=== PATIENT | female | born 1960 | race Caucasian/White ===

== ENCOUNTER 2023-08-01 13:59 | Outpatient (CLI) | payer MEDICARE, SELFPAY ==
[2023-08-01 14:58] LABS: Basophils Percent Auto 0.4 % (0.2-1.2); Eosinophils Absolute Auto 0.1 K/mm3 (0-0.3); Eosinophils Percent Auto 1.8 % (0-4.4); Hematocrit 43.5 % (37.0-47.0); Hemoglobin 13.5 g/dL (12.0-15.0); Immature Granulocyte Absolute 0.01 K/mm3 (0.00-0.031); Immature Granulocyte Percent A 0.2 % (0-0.5); Lymphocytes Absolute Auto 0.91 K/mm3 (0.9-3.2); Lymphocytes Percent Auto 19.9 % (18.3-44.2); Mean Corpuscular Hemoglobin 29.6 pg (26-34); Mean Corpuscular Volume 95.4 fl (80-100); Mean Platelet Volume 10.5 fl (7.4-10.4); Monocytes Absolute Auto 0.3 K/mm3 (0.1-0.6); Monocytes Percent Auto 6.1 % (2.6-8.5); Neutrophils Absolute Auto 3.3 K/mm3 (1.3-6.7); Neutrophils Percent Auto 71.6 % (45.5-73.1); Platelet Count Result 220 k/mm3 (150-375); Red Blood Count 4.56 M/mm3 (4.2-5.4); White Blood Count 4.6 K/mm3 (4.5-10.0)
[2023-08-01 15:08] LABS: Appearance Urine Clear (Clear); Bacteria Urine None Seen /hpf; Bilirubin Urine Negative (Negative); Blood Urine Negative (Negative); Color Urine Yellow (Yellow); Glucose Urine UA Negative (Negative); Ketones Urine Negative (Negative); Leukocyte Esterase Ur Negative LEU/UL (Negative); Need Manual Microscopic Reviewed; Nitrate Urine Negative (Negative); Protein Urine Trace mg/dL (Negative); Squamous Epithelial Cell Urine None Seen /hpf (Few); WBC Urine 0-5 /hpf (0-3)
[2023-08-01 15:14] LABS: Specific Grav Ur 1.041 (1.001-1.035)
[2023-08-01 15:16] LABS: Add Urine Microscopic? YES
[2023-08-01 15:56] LABS: Vitamin D 25 Hydroxy 54.9 ng/mL
[2023-08-01 19:16] LABS: Alanine Aminotransferase 22 U/L (6-35); Albumin Level 4.6 g/dL (3.5-5.1); Alkaline Phosphatase 136 U/L (38-126); Anion Gap 7 mmol/L (4-12); Aspartate Amino Transferase 27 U/L (14-36); Bilirubin,Total 1.1 mg/dL (0.2-1.3); Blood Urea Nitrogen 24 mg/dL (7-17); Calcium 9.1 mg/dL (8.4-10.2); Carbon Dioxide 27 mmol/L (22-30); Chloride 103 mmol/L (98-107); Cholesterol 261 mg/dL (0-200); Estimated Glomerular Filt Rate > 60; Glucose 94 mg/dL (65-110); HDL Direct 92 mg/dL; Potassium 4.1 mmol/L (3.4-5.0); Sodium 137 mmol/L (137-145); Triglycerides 52 mg/dL (<150)
[2023-08-01 19:29] LABS: LDL Cholesterol Direct 141 mg/dL
[2023-08-01 20:35] LABS: Folic Acid 11.6 ng/mL (2.76->20)
[2023-08-01 21:10] LABS: Hemoglobin A1C 5.4 % (<5.7)
== END 2023-08-01 14:00 | disposition home or self-care (01) ==
PROVIDERS: PCP Internal Medicine; Visit Provider Nurse Practitioner
DX: R73.9 Hyperglycemia, unspecified (principal); K92.1 Melena; L30.9 Dermatitis, unspecified; M81.0 Age-related osteoporosis without current pathological fracture; E55.9 Vitamin D deficiency, unspecified; R53.81 Other malaise; Z79.899 Other long term (current) drug therapy; Z85.3 Personal history of malignant neoplasm of breast; Z85.41 Personal history of malignant neoplasm of cervix uteri; Z83.3 Family history of diabetes mellitus; Z13.21 Encounter for screening for nutritional disorder
CPT/HCPCS: 36415; 80053; 80061; 81001; 82306; 82607; 82746; 83036; 84443; 85025

== ENCOUNTER 2023-09-03 07:00 | Outpatient (NON) | payer MEDICARE, SELFPAY | END 2023-09-03 07:01 | disposition home or self-care (01) | LOC: ANHLAB 09-04 07:45 | PROVIDERS: PCP Nurse Practitioner; Visit Provider Internal Medicine Gastroenterology | DX: K21.9 Gastro-esophageal reflux disease without esophagitis (principal); Z12.11 Encounter for screening for malignant neoplasm of colon | CPT/HCPCS: 88305 ==

== ENCOUNTER 2023-09-03 09:02 | Day surgery (SDC) | payer MEDICARE, SELFPAY ==
[2023-08-15 09:39] VITALS: BMI 25.9
--- NOTE | 2023-09-02 22:02 | PM.HPGS ---
History of Present Illness History of Present Illness Consent: Risks, benefits, and alternatives have been discussed and questions answered. Patient agrees to proceed with procedure. Chief complaint: Personal History of Colon Polyps, GERD Narrative: Tatyana Beltran is a 63 year old female who is referred for colon cancer screening. She is also being investigated for chronic GERD Sx. she had been found to have an esophageal ring a few years ago and is now having difficulty with swallowing again. Review of Systems Review of Systems: All systems reviewed & are unremarkable except as noted in HPI and below PMFSH Social History Social History Smoking status: Former smoker Substance use type: does not use Meds Home Medications and Allergies Home Medications Medication Instructions Recorded Confirmed Type dextroamphetamine-amphetamine 30 1 tablet PO DIRECTED 08/27/23 09/03/23 History mg tablet lamotrigine 200 mg tablet 200 mg PO DIRECTED 08/27/23 09/03/23 History trazodone 150 mg tablet 150 mg PO DIRECTED 08/27/23 09/03/23 History Allergies Allergy/AdvReac Type Severity Reaction Status Date / Time morphine Allergy Mild NAUSEA/VOMI Verified 09/03/23 10:25 TING povidone Allergy Mild Rash Verified 09/03/23 10:25 SURGICAL TAPE Allergy Mild RASH Uncoded 09/03/23 10:25 Exam Const: General: alert Orientation/consciousness: patient oriented x3 Resp: Auscultation: clear to auscultation bilaterally Cardio: Rhythm: regular rhythm GI: GI Palp: Yes Soft to palpation and No Tenderness to palpation present (GI) Neuro: General: patient oriented x3 Assessment and Plan Assessment and plan (1) GERD (gastroesophageal reflux disease): Code(s): K21.9 - Gastro-esophageal reflux disease without esophagitis Status: Acute Assessment and Plan: EGD with possible biopsy or dilatation or cautery. (2) Colon cancer screening: Code(s): Z12.11 - Encounter for screening for malignant neoplasm of colon Status: Acute Assessment and Plan: Colonoscopy with possible biopsy or polypectomy or cautery or injection of substances.
[2023-09-03 10:38] VITALS: BP 148/73; PULSE 75; RESP 20; TEMP 36.9; O2SAT 99; BMI 25.0
[2023-09-03] MEDS: LACTATED RINGERS 1,000 ML 150 ML IV CONT (10:52)
--- NOTE | 2023-09-03 11:10 | P.PNAN_ITS ---
Anes - Initial Pre Proc Eval Procedure: Operation Date: 09/03/23 11:30 Proposed Procedures p Esophagogastroduodenoscopy - Sung Bejarano MD s Diagnostic Colonoscopy - Sung Bejarano MD Date/Time: 09/03/23 11:10 Surgeon: Sung Bejarano MD Pre Op Diagnosis: Personal History of Colon Polyps, GERD Patient Data Age: 63 Gender: F Height: 1.52 m Weight: 58 kg Last Vital Signs Temp 36.9 C 09/03/23 10:38 Pulse 75 09/03/23 10:38 Resp 20 09/03/23 10:38 BP 148/73 H 09/03/23 10:38 Pulse Ox 99 09/03/23 10:38 O2 Del Method Room Air 09/03/23 10:38 Allergies Allergy/AdvReac Type Severity Reaction Status Date / Time morphine Allergy Mild NAUSEA/VOMI Verified 09/03/23 10:25 TING povidone Allergy Mild Rash Verified 09/03/23 10:25 SURGICAL TAPE Allergy Mild RASH Uncoded 09/03/23 10:25 Home Medications Medication Instructions Recorded Confirmed Type dextroamphetamine-amphetamine 30 1 tablet PO DIRECTED 08/27/23 09/03/23 History mg tablet lamotrigine 200 mg tablet 200 mg PO DIRECTED 08/27/23 09/03/23 History trazodone 150 mg tablet 150 mg PO DIRECTED 08/27/23 09/03/23 History Patient hx anesthesia problems: none and other (BP drops) Family hx anesthesia problems: none Results Review: All pre-operative results and documents have been reviewed as part of the pre- operative evaluation. [facility] Social History Social History Smoking status: Former smoker Substance use type: does not use Anes - Eval Final PreProcedure Day of Procedure 09/03/23 11:10 Patient weight: normal Heart: regular rate and rhythm Lungs: decreased breath sounds Airway: Mallampati scale class II Neurological: alert and oriented Last oral intake: >/= 8 hours ASA classification: III Emergent: no Anesthetic plan: proceed Anesthesia type and monitoring: general GIVS and standard monitoring Results Review: All pre-operative results and documents have been reviewed as part of the pre- operative evaluation. Informed Consent: The patient's anesthetic plan and its attendant risks and benefits were discussed with the patient/family/POA. Questions were solicited and answers pro vided to the satisfaction of the patient/family/POA.
[2023-09-03 12:24] VITALS: BP 102/59; PULSE 70; RESP 20; O2SAT 100
[2023-09-03 12:34] VITALS: BP 139/80; PULSE 65; RESP 18; O2SAT 98
[2023-09-03 12:44] VITALS: BP 129/85; PULSE 73; RESP 20; O2SAT 100
--- NOTE | 2023-09-03 13:04 | WPDANESPN ---
Anes - Prog Note Post-Op Date/Time: 09/03/23 13:04 Cardiovascular status: normal Respiratory status: normal Airway patency: baseline Mental status: baseline Post-Op hydration status: normal Vital Signs: Last Vital Signs Temp 36.9 C 09/03/23 10:38 Pulse 73 09/03/23 12:44 Resp 20 09/03/23 12:44 BP 129/85 09/03/23 12:44 Pulse Ox 100 09/03/23 12:44 O2 Del Method Room Air 09/03/23 12:44 Pain Score (VAS): 0 I/O: Intake & Output 09/02/23 09/03/23 09/03/23 23:59 07:59 15:59 Intake Total 1000 Balance 1000 Patient Feedback: Patient satisfied with anesthetic care.
== END 2023-09-03 13:09 | disposition home or self-care (01) ==
PROVIDERS: PCP Nurse Practitioner; Visit Provider Internal Medicine Gastroenterology
PROC: 0DJ08ZZ Inspection of Upper Intestinal Tract, Via Natural or Artificial Opening Endoscopic (ICD-10-PCS; CPT 43235; principal; 2023-09-03 11:30)
PROC: 0DJD8ZZ Inspection of Lower Intestinal Tract, Via Natural or Artificial Opening Endoscopic (ICD-10-PCS; CPT 45378; 2023-09-03 11:30)
DX: Z12.11 Encounter for screening for malignant neoplasm of colon (principal); D12.5 Benign neoplasm of sigmoid colon; K57.30 Diverticulosis of large intestine without perforation or abscess without bleeding; K21.00 Gastro-esophageal reflux disease with esophagitis, without bleeding; K22.2 Esophageal obstruction; K29.70 Gastritis, unspecified, without bleeding
CPT/HCPCS: 45380; 45381; 43239

== ENCOUNTER 2023-09-21 15:08 | Outpatient (CLI) | payer MEDICARE, SELFPAY ==
--- NOTE | ~2023-09-21 | CT_ITS ---
CT abdomen pelvis wo con Ordering provider: Crow Byrd MD History: 63 years Female with . evaluate for hernia . Comparison: None. Technique: CT abdomen and pelvis without IV and without oral contrast. Automated exposure control and iterative reconstruction technique were employed. The dose-length product was 418.63 mGy-cm. Left breast implant. Findings: VISUALIZED LOWER CHEST: Dependent atelectatic changes. UPPER ABDOMINAL ORGANS: Liver: Normal. Gallbladder: Normal. Spleen: Normal. Stomach/duodenum: Normal. Pancreas: Normal. Adrenals: Normal. Kidneys: Tiny calcification the left kidney which may be a stone or vascular. Tiny calcification also seen in the right kidney midpole in the right kidney in the area is present, with an opacity in PELVIC ORGANS: The bladder is underfilled. BOWEL AND MESENTERY: Colon: no evidence of diverticulitis. . Fecal material is seen in the colon which may indicate consti pation. The appendix is not demonstrated Small Bowel: Normal. No obstruction. Peritoneum/mesentery: No free air or free fluid. No mesenteric lymphadenopathy. RETROPERITONEUM: Mild atheromatous disease of the abdominal aorta. No retroperitoneal lymphadenopat hy. MUSCULOSKELETAL: Superficial soft tissues: Postoperative changes seen in the anterior abdominal wall. No definite aries iation seen. Possibility of a defect of about 9 mm to the right of the anterior abdominal mesh is not excluded image #[id number] although sutures anterior to this area seen. Otherwise, The superficial soft tiss ues are normal. Bones: Multilevel loss of volume which is most likely chronic. Osteopenia of the bones. Age appropria te degenerative changes of the spine. Bilateral sacroiliitis. IMPRESSION: 1. Multilevel compression fractures most likely chronic. Osteopenia of the bones. 2. Postoperative changes in the anterior abdominal wall with no definite herniation. Possible defect on the right side as described above near to the mesh is not excluded. Clinical correlation and foll ow-up advised. 3. Tiny calcifications in both kidneys most likely vascular. Follow-up advised. Reviewed, dictated and finalized at location A. IMPRESSION: 1. Multilevel compression fractures most likely chronic. Osteopenia of the bon es. 2. Postoperative changes in the anterior abdominal wall with no definite herni ation. Possible defect on the right side as described above near to the mesh is not excluded. Clinical correlation and follow-up advised. 3. Tiny calcifications in both kidneys most likely vascular. Follow-up advised .
== END 2023-09-21 15:09 ==
LOC: MICIMG 15:09
PROVIDERS: PCP Surgery; Visit Provider Surgery
DX: D12.5 Benign neoplasm of sigmoid colon (principal); K43.9 Ventral hernia without obstruction or gangrene
CPT/HCPCS: 74176

== ENCOUNTER 2023-11-06 06:15 | Day surgery (SDC) | payer MEDICARE, SELFPAY ==
[2023-09-04 15:12] VITALS: BMI 25.0
[2023-10-23 11:47] VITALS: BMI 25.4
--- NOTE | 2023-10-30 10:27 | PM.HPGS ---
History of Present Illness History of Present Illness Consent: Risks, benefits, and alternatives have been discussed and questions answered. Patient agrees to proceed with procedure. Chief complaint: Gastritis, Benign Neoplasm Sigmoid Colon Narrative: Tatyana Beltran is a 63 year old female Who returns for follow-up of severe ulceration of the esophagus that was noted 2 months ago. Along with that she had erosive gastritis. She has been treated and returns for she also had had a suspicious appearing polypoid mass in the sigmoid colon. Biopsies proved benign. She has been seen by surgery for an opinion regarding resection. Due to the fact that she has had extensive prior abdominal wall surgery, surgery would be difficult with higher risk of complications. She therefore returns for attempted ectomy /EMResection. [facility] Past Medical History Medical History (Updated 10/25/23 @ 09:39 by Rowena Christianson) Allergies Arthritis Cancer COPD (chronic obstructive pulmonary disease) GERD (gastroesophageal reflux disease) Hepatitis History of bilateral breast cancer TRAM flap IBS (irritable bowel syndrome) Osteoporosis Surgical History Surgical History (Updated 10/25/23 @ 09:42 by Rowena Christianson) History of appendectomy History of reconstruction of both breasts History of tubal ligation Hx of breast surgery reconstruction Hx of hernia repair Hx of hysterectomy Hx of mastectomy TRAM flap Family History Family History Mother Depression Diabetes mellitus Heart disease Hypertension Cerebrovascular accident Father Diabetes mellitus Heart disease Hypertension Cerebrovascular accident Social History Social History Smoking status: Former smoker Tobacco type: cigarettes Substance use type: does not use Do You Feel Safe in your Home?: Yes Lack of Transportation: No Lack of Food: Never True Current Housing: I Do Not Have Housing Concerned About Future Housing: No Difficulty Paying Gas/Electric Bills: No Difficulty Paying for Meds: YES Currently Unemployed: No Education: High School Diploma/GED Difficulty w/ Childcare or Family Care: No Living arrangements: alone Spiritual care concerns: No Meds Home Medications and Allergies Home Medications Medication Instructions Recorded Confirmed Type dextroamphetamine-amphetamine 30 1 tablet PO DIRECTED 08/27/23 10/26/23 History mg tablet lamotrigine 200 mg tablet 200 mg PO DIRECTED 08/27/23 10/26/23 History trazodone 150 mg tablet 150 mg PO DIRECTED 08/27/23 10/26/23 History pantoprazole 40 mg tablet,delayed 40 mg PO QAM #30 tabs 09/03/23 10/26/23 Rx release ascorbic acid (vitamin C) 500 mg 500 mg PO DAILY 10/23/23 10/26/23 History capsule cholecalciferol (vitamin D3) 50 50 mcg PO DAILY 10/23/23 10/26/23 History mcg (2,000 unit) tablet (Vitamin D3) magnesium 500 mg tablet 500 mg PO BID 10/23/23 10/26/23 History omega-3 fatty acids-vitamin E 1 cap PO DAILY 10/23/23 10/26/23 History 1,000 mg capsule vitamin E 100 unit capsule 100 unit PO DAILY 10/23/23 10/26/23 History Allergies Allergy/AdvReac Type Severity Reaction Status Date / Time morphine Allergy Mild NAUSEA/VOMI Verified 10/25/23 08:57 TING povidone Allergy Mild Rash Verified 10/25/23 08:57 SURGICAL TAPE Allergy Mild RASH Uncoded 10/25/23 08:57 Assessment and Plan Assessment and plan (1) GERD with esophagitis: Qualifiers: Esophagitis bleeding: unspecified whether hemorrhage Qualified Code(s): K21.00 - Gastro-esophageal reflux disease with esophagitis, without bleeding Code(s): K21.00 - Gastro-esophageal reflux disease with esophagitis, without bleeding Status: Acute Assessment and Plan: EGD with possible biopsy or dilatation or cautery. (2) Adenomatous polyp of sigmoid
[2023-11-06 06:46] VITALS: BP 138/84; PULSE 79; RESP 15; TEMP 37.1; O2SAT 100
[2023-11-06] MEDS: LACTATED RINGERS 1,000 ML 150 ML IV CONT (07:00)
--- NOTE | 2023-11-06 07:01 | PM.HPGS ---
History of Present Illness History of Present Illness Consent: Risks, benefits, and alternatives have been discussed and questions answered. Patient agrees to proceed with procedure. Chief complaint: Gastritis, Benign Neoplasm Sigmoid Colon Narrative: Tatyana Beltran is a 63 year old female presents for both colonoscopy and EGD. Patient seen today in the absence of Dr. Bejarano. Patient found to have severe ulcerative esophagitis 2 months ago. At that time placed on pantoprazole 40 mg daily. She reports that she continues to have heartburn despite this medication. Patient denies any dysphagia nor bleeding. She also has a history of colon polyps in the past. At the time of colonoscopy 2 months ago found to have a rather large sessile carpet like polyp. This was unable to be removed endoscopically. Patient seen by surgery but is deemed a very high surgical risk given multiple ventral site hernias. Patient now presents today for endoscopic attempt at EMR resection. Review of Systems Review of Systems: All systems reviewed & are unremarkable except as noted in HPI and below PMFSH Past Medical History Medical History (Updated 10/25/23 @ 09:39 by Rowena Christianson) Allergies Arthritis Cancer COPD (chronic obstructive pulmonary disease) GERD (gastroesophageal reflux disease) Hepatitis History of bilateral breast cancer TRAM flap IBS (irritable bowel syndrome) Osteoporosis Surgical History Surgical History (Updated 10/25/23 @ 09:42 by Rowena Christianson) History of appendectomy History of reconstruction of both breasts History of tubal ligation Hx of breast surgery reconstruction Hx of hernia repair Hx of hysterectomy Hx of mastectomy TRAM flap Family History Family History Mother Depression Diabetes mellitus Heart disease Hypertension Cerebrovascular accident Father Diabetes mellitus Heart disease Hypertension Cerebrovascular accident Social History Social History Smoking status: Former smoker Tobacco type: cigarettes Substance use type: does not use Do You Feel Safe in your Home?: Yes Lack of Transportation: No Lack of Food: Never True Current Housing: I Do Not Have Housing Concerned About Future Housing: No Difficulty Paying Gas/Electric Bills: No Difficulty Paying for Meds: YES Currently Unemployed: No Education: High School Diploma/GED Difficulty w/ Childcare or Family Care: No Living arrangements: alone Spiritual care concerns: No Meds Home Medications and Allergies Home Medications Medication Instructions Recorded Confirmed Type dextroamphetamine-amphetamine 30 1 tablet PO DIRECTED 08/27/23 11/06/23 History mg tablet lamotrigine 200 mg tablet 200 mg PO DIRECTED 08/27/23 11/06/23 History trazodone 150 mg tablet 150 mg PO DIRECTED 08/27/23 11/06/23 History pantoprazole 40 mg tablet,delayed 40 mg PO QAM #30 tabs 09/03/23 11/06/23 Rx release ascorbic acid (vitamin C) 500 mg 500 mg PO DAILY 10/23/23 11/06/23 History capsule cholecalciferol (vitamin D3) 50 50 mcg PO DAILY 10/23/23 11/06/23 History mcg (2,000 unit) tablet (Vitamin D3) magnesium 500 mg tablet 500 mg PO BID 10/23/23 11/06/23 History omega-3 fatty acids-vitamin E 1 cap PO DAILY 10/23/23 11/06/23 History 1,000 mg capsule vitamin E 100 unit capsule 100 unit PO DAILY 10/23/23 11/06/23 History Allergies Allergy/AdvReac Type Severity Reaction Status Date / Time morphine Allergy Mild NAUSEA/VOMI Verified 11/06/23 06:45 TING povidone Allergy Mild Rash Verified 11/06/23 06:45 SURGICAL TAPE Allergy Mild RASH Uncoded 11/06/23 06:45 Vital Signs Vital Signs - 24 hr 11/06/23 06:46 Temperature 98.8 F Pulse Rate 79 Respiratory Rate 15 Blood Pressure 138/84 Pulse Oximetry 100 Oxygen Delivery Room Air Exam Narrative: [place]
--- NOTE | 2023-11-06 07:03 | WPDANESEPPF ---
Anes - Initial Pre Proc Eval Procedure: Operation Date: 11/06/23 08:00 Proposed Procedures p Esophagogastroduodenoscopy - Nguyễn Marcus MD s Flexible Sigmoidoscopy - Nguyễn Marcus MD Date/Time: 11/06/23 07:03 Surgeon: Nguyễn Marcus MD Pre Op Diagnosis: Gastritis, Benign Neoplasm Sigmoid Colon Patient Data Age: 63 Gender: F Height: 1.52 m Weight: 58.6 kg Last Vital Signs Temp 37.1 C 11/06/23 06:46 Pulse 79 11/06/23 06:46 Resp 15 11/06/23 06:46 BP 138/84 11/06/23 06:46 Pulse Ox 100 11/06/23 06:46 O2 Del Method Room Air 11/06/23 06:46 Allergies Allergy/AdvReac Type Severity Reaction Status Date / Time morphine Allergy Mild NAUSEA/VOMI Verified 11/06/23 06:45 TING povidone Allergy Mild Rash Verified 11/06/23 06:45 SURGICAL TAPE Allergy Mild RASH Uncoded 11/06/23 06:45 Home Medications Medication Instructions Recorded Confirmed Type dextroamphetamine-amphetamine 30 1 tablet PO DIRECTED 08/27/23 11/06/23 History mg tablet lamotrigine 200 mg tablet 200 mg PO DIRECTED 08/27/23 11/06/23 History trazodone 150 mg tablet 150 mg PO DIRECTED 08/27/23 11/06/23 History pantoprazole 40 mg tablet,delayed 40 mg PO QAM #30 tabs 09/03/23 11/06/23 Rx release ascorbic acid (vitamin C) 500 mg 500 mg PO DAILY 10/23/23 11/06/23 History capsule cholecalciferol (vitamin D3) 50 50 mcg PO DAILY 10/23/23 11/06/23 History mcg (2,000 unit) tablet (Vitamin D3) magnesium 500 mg tablet 500 mg PO BID 10/23/23 11/06/23 History omega-3 fatty acids-vitamin E 1 cap PO DAILY 10/23/23 11/06/23 History 1,000 mg capsule vitamin E 100 unit capsule 100 unit PO DAILY 10/23/23 11/06/23 History Patient hx anesthesia problems: none Family hx anesthesia problems: none Results Review: All pre-operative results and documents have been reviewed as part of the pre-operative evaluation. [facility] Past Medical History Medical History (Updated 10/25/23 @ 09:39 by Rowena Christianson) Allergies Arthritis Cancer COPD (chronic obstructive pulmonary disease) GERD (gastroesophageal reflux disease) Hepatitis History of bilateral breast cancer TRAM flap IBS (irritable bowel syndrome) Osteoporosis Surgical History Surgical History (Updated 10/25/23 @ 09:42 by Rowena Christianson) History of appendectomy History of reconstruction of both breasts History of tubal ligation Hx of breast surgery reconstruction Hx of hernia repair Hx of hysterectomy Hx of mastectomy TRAM flap Family History Family History Mother Depression Diabetes mellitus Heart disease Hypertension Cerebrovascular accident Father Diabetes mellitus Heart disease Hypertension Cerebrovascular accident Social History Social History Smoking status: Former smoker Tobacco type: cigarettes Substance use type: does not use Do You Feel Safe in your Home?: Yes Lack of Transportation: No Lack of Food: Never True Current Housing: I Do Not Have Housing Concerned About Future Housing: No Difficulty Paying Gas/Electric Bills: No Difficulty Paying for Meds: YES Currently Unemployed: No Education: High School Diploma/GED Difficulty w/ Childcare or Family Care: No Living arrangements: alone Spiritual care concerns: No Anes - Eval Final PreProcedure Day of Procedure 11/06/23 07:03 Patient weight: overweight Heart: regular rate and rhythm Lungs: clear to auscultation Airway: Mallampati scale class II Neurological: alert and oriented Last oral intake: >/= 8 hours ASA classification: III Emergent: no Anesthetic plan: proceed Anesthesia type and monitoring: general GIVS and standard monitoring Results Review: All pre-operative results and documents have been reviewed as part of the pre-operative evaluation. Informed Consent: The patient's anesthetic
[2023-11-06 08:39] VITALS: BP 98/67; PULSE 70; RESP 18; O2SAT 100
[2023-11-06 08:49] VITALS: BP 115/77; PULSE 72; RESP 18; O2SAT 100
[2023-11-06 08:59] VITALS: BP 129/73; PULSE 68; RESP 18; O2SAT 100
--- NOTE | 2023-11-06 11:21 | WPDANESPN ---
Anes - Prog Note Post-Op Date/Time: 11/06/23 11:21 Cardiovascular status: normal Respiratory status: normal Airway patency: baseline Mental status: baseline Post-Op hydration status: normal Vital Signs: Last Vital Signs Temp 37.1 C 11/06/23 06:46 Pulse 68 11/06/23 08:59 Resp 18 11/06/23 08:59 BP 129/73 11/06/23 08:59 Pulse Ox 100 11/06/23 08:59 O2 Del Method Room Air 11/06/23 08:59 Pain Score (VAS): 0 I/O: Intake & Output 11/05/23 11/06/23 11/06/23 23:59 07:59 15:59 Intake Total 450 Balance 450 Post-procedural complaints: none Patient Feedback: Patient satisfied with anesthetic care. Other Findings: Patient vital signs back to baseline. Patient denies nausea and vomiting. Patient's pain under control. Patient OK for discharge.
== END 2023-11-06 09:15 | disposition home or self-care (01) ==
PROVIDERS: PCP Nurse Practitioner; Visit Provider Internal Medicine Gastroenterology
PROC: 0DJ08ZZ Inspection of Upper Intestinal Tract, Via Natural or Artificial Opening Endoscopic (ICD-10-PCS; CPT 43235; principal; 2023-11-06 08:00)
PROC: 0DJD8ZZ Inspection of Lower Intestinal Tract, Via Natural or Artificial Opening Endoscopic (ICD-10-PCS; CPT 45330; 2023-11-06 08:00)
DX: D12.5 Benign neoplasm of sigmoid colon (principal); Z86.010 Personal history of colon polyps; K22.10 Ulcer of esophagus without bleeding; K21.9 Gastro-esophageal reflux disease without esophagitis; R12 Heartburn
CPT/HCPCS: 45338; 43239

== ENCOUNTER 2023-11-06 07:00 | Outpatient (NON) | payer MEDICARE, SELFPAY | END 2023-11-06 07:01 | disposition home or self-care (01) | PROVIDERS: PCP Nurse Practitioner; Visit Provider Internal Medicine Gastroenterology | DX: D12.5 Benign neoplasm of sigmoid colon (principal) | CPT/HCPCS: 88305 ==

== ENCOUNTER 2023-11-23 12:04 | Outpatient (CLI) | payer MEDICARE, SELFPAY ==
[2023-11-20 11:20] LABS: Glucose Point of Care 92 mg/dl (65-105)
--- NOTE | ~2023-11-23 | PE_ITS ---
EXAMINATION: PET skull to mid thigh DATE: 11/23/2023 13:48 INDICATION: Breast and cervical cancer TECHNIQUE: Blood glucose level was 104 mg/dL. 11.161 mCi of 18-fluorodeoxyglucose (18-FDG) was admini stered i.v. Low dose computed tomography (CT) images were acquired from the base of the brain to the proximal thighs for attenuation correction and anatomic localization. Positron emission tomography (P ET) images were acquired in the same distribution beginning 55 minutes after injection. Images includ ing fused PET/CT images were reconstructed in axial, coronal, and sagittal planes. Automated exposure control technique was employed. The dose-length product was 753.07mGy-cm. COMPARISON: CT dated 09/21/2023 FINDINGS: Head/neck: There is symmetric increased activity in the oral cavity, palatine tonsils, parotid glands, submandi bular glands, laryngeal muscles and ocular muscles without CT correlate, likely physiologic. No patho logically enlarged cervical lymphadenopathy or suspicious foci of increased FDG uptake in the visuali zed head or neck. Chest: Mild dependent atelectasis in both lungs. No suspicious pulmonary nodules, pneumonia, pulmonary edema or pleural effusion. Heart size is normal. Atherosclerotic coronary artery calcification. No pericar dial effusion. Thoracic aorta is normal in caliber. No pathologically enlarged or FDG avid thoracic l ymphadenopathy. There are bilateral breast implants with rupture and collapse on the right. There ar e few surgical clips at and inferior to the the left axilla consistent with prior axillary lymph node dissection. Abdomen/pelvis/proximal thighs: Physiologic renal accumulation and excretion of FDG activity in the kidneys, bladder and along portio ns of ureters. Normal degree and heterogenous pattern of increased uptake throughout the liver withou t radiologic correlate or dominant FDG avid lesion. The gallbladder, pancreas, spleen and bilateral a drenal glands are normal. Mild moderate uptake scattered throughout the bowels without radiologic cor relate, also likely physiologic. The uterus is not identified and has likely been surgically resected . There are postoperative change of prior abdominal ventral hernia mesh repairs. No other abnormal foci of increased FDG uptake or pathologically enlarged lymphadenopathy in the abdomen, pelvis or pro ximal thighs. Musculoskeletal: Again seen are multiple chronic compression fractures in the lumbar and lower thoracic spine. There i s mild uptake associated with a minimally displaced fracture of the anterior left 11th rib. No other suspicious lytic, blastic or FDG avid bone lesions. IMPRESSION: 1. No suspicious FDG avid lesions to suggest metastatic disease. 2. Small focus of increased FDG uptake associated with anterior left 11th rib fracture. Reviewed, dictated and finalized at location B. IMPRESSION: 1. No suspicious FDG avid lesions to suggest metastatic disease. 2. Small focus of increased FDG uptake associated with anterior left 11th rib f racture.
[2023-11-23 12:23] LABS: Glucose Point of Care 104 mg/dl (65-105)
== END 2023-11-23 12:05 | disposition home or self-care (01) ==
PROVIDERS: PCP Nurse Practitioner; Visit Provider Nurse Practitioner
DX: C50.111 Malignant neoplasm of central portion of right female breast (principal); C50.112 Malignant neoplasm of central portion of left female breast; Z85.41 Personal history of malignant neoplasm of cervix uteri; Z85.3 Personal history of malignant neoplasm of breast
CPT/HCPCS: 78815; A9552

== ENCOUNTER 2024-05-12 14:43 | Outpatient (CLI) | payer MEDICARE, SELFPAY ==
--- NOTE | ~2024-05-12 | DEXA_ITS ---
Bone Density Report Name: KAMRAN POTTS Age: 63 Sex: Female Ethnicity: White Date of : 1960 Indication: postmenopausal; screening for osteoporosis; height loss; inflammatory bowel disease; prior fracture; cancer; hysterectomy; Referring Provider: LAWSON, EMILIA Rogers Study: Bone densitometry was performed. Exam Date: May 12, 2024 Accession number: [id number] Bone Density: Region BMD T-score Z-score Classification AP Spine(L1-L4) 0.705 -3.1 -1.3 Osteoporosis Femoral Neck (Left) 0.567 -2.5 -1.0 Osteoporosis Total Hip (Left) 0.607 -2.7 -1.5 Osteoporosis Femoral Neck (Right) 0.598 -2.3 -0.7 Osteopenia Total Hip (Right) 0.642 -2.5 -1.2 Osteoporosis Total Hip Mean 0.625 -2.6 -1.4 Osteoporosis World Health Organization criteria for BMD impression classify patients as: Normal (T-score at or above -1.0), Osteopenia (T-score between -1.0 and -2.5), or Osteoporosis (T-score at or below -2.5). 10-year Fracture Risk: FRAX not reported because: Some T-score for Spine Total or Hip Total or Femoral Neck at or below -2.5 Clinical Information Provided by Patient: Has had a low trauma fracture Has used the following medications: Fosamax (i.e. alendronate), Vitamin D, Calcium Has the following medical conditions: Cancer, Inflammatory bowel diseases, Hysterectomy Patient maximum height was 61 Menopause Age: 34 No regular weight bearing exercise Drinks caffeinated beverages Onset of menses at age 10 Number of children 3 Impression: The patient has established osteoporosis, based on the Total Spine T-score and the existence of a prior fracture. The patient has risk factors, including: previous fracture. Discussion: HIGH RISK OF FRACTURE. BONE DENSITY IS UNDESIRABLY LOW AT ONE OR MORE SKELETAL SITES, CONSISTENT WITH POSTMENOPAUSAL OSTEOPOROSIS. This patient's lowest T-score, in a patient who has previously fractured, meets the World Health Organization's (WHO) criteria for severe osteoporosis. In untreated patients, the risk of osteoporotic fracture increases approximately two-fold for each 1.0 SD decrease in T-score. Low bone density is not the only risk factor for fracture; also consider factors such as patient's age, frailty or poor health, risk of falling, risk of injury, previous osteoporotic fracture, family history of osteoporosis, cigarette smoking, low body weight, etc. Not everyone with low bone mineral density has osteoporosis; osteomalacia and other metabolic bone disorders should also be considered. Patients who have osteoporosis should be evaluated for specific diseases and conditions (secondary causes) that may cause or contribute to bone loss. The [place] Association of Clinical Endocrinologists (AACE) and National Osteoporosis Foundation (NOF) recommend pharmacologic intervention for all postmenopausal women whose T-score is in this range. The patient should follow a healthful lifestyle (good nutrition with adequate calcium and vitamin D, and appropriate weight-bearing exercise). Follow-Up: Consider a repeat BMD and Vertebral Fracture Assessment (VFA) exam in 2 years or sooner if medically necessary, to reassess this patient's status. Reported by: ALYX on 05/12/2024 3:45:00 PM. Reviewed, dictated and finalized at location ANora FERNANDEZ
--- OUTSIDE RECORDS SUMMARY | 2024-05-12 17:17 | XMS_ITS | Clinical Summary ---
Author Organization [facility] Address [address] [place] [id number] Care Team Providers Care Hospitality Manager Name Role Phone Luara Webb MD Primary Care Provider Social History Tobacco Use Types Packs/Day Years Used Date Smoking Tobacco: Never Assessed Comments Unknown Sex and Gender Information Value Date Recorded Sex Assigned at Not on file Legal Sex Female 8:03 PM CDT Gender Identity Not on file Sexual Orientation Not on file Last Filed Vital Signs Vital Sign Reading Time Taken Comments Blood Pressure 122/82 07/08/2014 9:24 AM CDT Pulse - - Temperature - - Respiratory Rate - - Oxygen Saturation - - Inhaled Oxygen Concentration - - Weight 63.5 kg (140 lb) 07/08/2014 9:24 AM CDT Height 162.6 cm (5' 4 ) 07/08/2014 9:24 AM CDT Body Mass Index 24.03 07/08/2014 9:24 AM CDT Plan of Treatment Health Maintenance Due Date Last Done Comments Colorectal Cancer Screening Colonoscopy (10 Years) 1958 Hepatitis C 1976 DTaP, Tdap and Td Vaccines ( 1 - Tdap) 1977 Mammogram Screening 1998 Zoster Vaccines (1 of 2) 2008 Dexa Scan (General) 06/27/2023 Pneumococcal Vaccine: 65+ Ye ars (1 of 1 - PCV) 06/27/2023 COVID-19 Vaccine ( - 2023-2 5 season) 2023 Influenza Adult (#1) 2023 RSV Immunization or 60+ Years (1 - 1-dose 75+ series) 2033 Meningococcal B Vaccine Aged Out No l onger eligible based on patient's age to complete this topic Meningococcal Vaccine Aged Out No reuben juan eligible based on patient's age to complete this topic Pneumococcal Vaccine: Pediat rics (0 to 5 Years) and At-Risk Patients (6 to 64 Years) Aged Out No longer eligible b ased on patient's age to complete this topic RSV Immunizations Under 20 Months Aged Out No longer eligible based on patient's age to complete this topic Care Teams Hospitality Manager Relationship Specialty Start Date End Date Laura Webb MD [address] [place] [address] PCP - General 09/19/16
--- OUTSIDE RECORDS SUMMARY | 2024-05-12 17:17 | XMS_ITS | Clinical Summary ---
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 Active TraZODone HCl 300 MG Tablet Take 150 mg by mouth nightly. Active amphetamine-dex troamphetamine (ADDERALL) 30 MG Tablet Take by mouth. Activ e Meloxicam 15 MG Tablet meloxicam 15 mg tablet daily Active traMADol (ULTRAM) 50 MG Tablet tramadol 150 mg HS Active gabapentin (NEURONTIN) 300 MG Capsule gabapentin 300 mg capsule TAKE 1 CAPSULE BY MOUTH THREE TIMES DAILY Active omeprazole (PRILOSEC) 40 MG CAPSULE DELAYED RELEASE Take 1 Cap by mouth daily. 90 Cap 3 8 Active lactulose (CHRONULAC) 10 GM/15ML Solution Take 30 mL by mouth 2 times daily. 946 mL 3 8 Active Family History Medical History Relation Name Comments Diabetes Father Heart Disease Father Colon Cancer Maternal Aunt Colon Cancer Maternal Grandfather colon Diabetes Mother Heart Disease Mother Relation Name Status Comments Father Maternal Aunt Maternal Grandfather Mother Social History Tobacco Use Types Packs/Day Years Used Date Smoking Tobacco: Former Cigarettes 2 40 1 - 12/26/2012 Smokeless Tobacco: Never Comments:quit 6 Alcohol Use Standard Drinks/Week Comments Yes 0 (1 standard drink = 0.6 oz pur e alcohol) Socially Comments No Sex and Gender Information Value Date Recorded Sex Assigned at Not on file Legal Sex Female 11:47 PM CDT Gender Identity Not on file Sexual Orientation Not on file Last Filed Vital Signs Vital Sign Reading Time Taken Comments Blood Pressure 114/80 03/22/2018 11:36 AM 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 Pulse 72 03/22/2018 11:36 AM 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 Temperature 36 C (96.8 F) 01/16/2018 11:21 AM 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 Respiratory Rate 18 01/16/2018 11:2 1 AM 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 Oxygen Saturation 98% 03/22/2018 11: 36 AM 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 Inhaled Oxygen Concentration - - Weight 54.8 kg (120 lb 12.8 oz) 019 11:36 AM 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 Height 154.9 cm (5' 1 ) 03/22/2018 11:3 6 AM 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 Body Mass Index 22.82 03/22/2018 11:36 AM 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 Plan of Treatment Health Maintenance Due Date Last Done Comments DEXA Bone Density 1960 Hepatitis C Virus (HCV) Screening 1960 TdaP Immunization 1960 Cologuard 2008 Immunochemical Fecal Occult Blood 2008 Zoster Immunization (1 of 2) 2008 Pneumococcal Immunization (5 0+ years) (2 of 2 - PCV) 12/15/2016 12/16/2015 Colonoscopy 01/16/2021 01/16/2018 Colorectal Cancer Screening 01/16/2021 Influenza Immunization (#1) 11/04/202312/04, 12/15/2015 SARS-COV-2 Immunization ( season) 2023 08/13/2020, 07/16/2020 Respiratory Syncytial Virus (RSV) Immunization (Adult) (1 - 1-dose 75+ series) 2033 01/16/2018 Pneumococcal Immunization Combined Discontinued 12/16/2015 Hepatitis B Immunization Aged Out No longer eligible based on patient's age to complete this topic Meningococcal Immunization (ACWY) Aged Out No longer eligible based on patient's age to complete this topic Rotavirus Immunization Aged Out No lo nger eligible based on patient's age to complete this topic Insurance MEDICAID [employer] Care Teams Welder Railcar Mechanic Relationship Specialty Start Date End Date Laura Webb MD [address] [place] [address] PCP - General Internal Medicine 08/23/17
--- OUTSIDE RECORDS SUMMARY | 2024-05-12 17:18 | XMS_ITS | Clinical Summary ---
Author Organization [facility] Address [address] [place] [address] Phone Care Team Providers Care Clerk Of Superior Court Name Role Phone Unavailable Primary Care Provider Unavailabl e Allergies No known active allergies Medications traZODone (DESYREL) 300 mg tablet Take 300 mg by mouth daily at bedtime. Active lamoTRIgine (LAMICTAL) 200 mg tablet Take 200 mg by mouth daily. Active dextroamphetamin e-amphetamine (ADDERALL) 30 mg tablet Take 30 mg by mouth daily. Active naproxen (NAPROSYN) 500 mg tablet Take 500 mg by mouth 2 times daily with meals. Active Active Problems Problem Noted Date Diagnosed Date S/P breast reconstruction, bilateral 12/17/2014 Social History Tobacco Use Types Packs/Day Years Used Date Smoking Tobacco: Former Smokeless Tobacco: Never Alcohol Use Standard Drinks/Week Comments Yes 0 (1 standard drink = 0.6 oz pur e alcohol) Comments No Sex and Gender Information Value Date Recorded Sex Assigned at Not on file Legal Sex Female 1:12 PM CDT Gender Identity Not on file Sexual Orientation Not on file Last Filed Vital Signs Vital Sign Reading Time Taken Comments Blood Pressure 124/76 12/16/2014 10:09 AM CDT Pulse - - Temperature - - Respiratory Rate - - Oxygen Saturation - - Inhaled Oxygen Concentration - - Weight 57.2 kg (126 lb) 12/16/2014 10:09 AM CDT Height 157.5 cm (5' 2 ) 12/16/2014 10:09 AM CDT Body Mass Index 23.05 12/16/2014 10:09 AM CDT Plan of Treatment Health Maintenance Due Date Last Done Comments DTAP/TDAP/TD VACCINES (1 - Tdap) 1977 BREAST CANCER SCREENING 1998 COLORECTAL SCREENING 06/27/2003 Colorectal Cancer Screening 06/27/2003 FIT-DNA Q 3 years 06/27/2003 FIT/FOBT Q 1 year 06/27/2003 Flex Sig/CT Colonography Q 5 years 06/27/2003 PNEUMOCOCCAL VACCINE 50+ YEARS (1 of 1 - PCV) 06/27/19 09 ZOSTER VACCINE (1 of 2) 2008 OSTEOPOROSIS SCREENING 06/27/2023 INFLUENZA VACCINE (#1) 2023 RSV VACCINE (60+ or ) (1 - 1-dose 75+ series) 2033
--- OUTSIDE RECORDS SUMMARY | 2024-05-12 17:18 | XMS_ITS | Data Portability ---
Author Organization [facility] Address [address] [place] [address] Care Team Providers Care Test Developer Name Role Phone LAURA WEBB Primary Care Provider [phone] Assessment No assessment recorded. Plan of Treatment Reminders Order Date Submit Date Provider Last Modified By Organization Details Last Modified Time Details Appointments None recorded. Lab O&P (ova & parasites) , stool 2019 020 [facility], [address], [address], [place], [address], 0 17:09:09 BMP, serum or plasma 2017 018 [facility], [address], [address], [place], [address], 8 06:18:31 Referral general surgeon referral - Please call patient to schedule appt. Tessa 2018 019 jenna Powers MD, [address] [facility], [address], [place], [address], 9 07:58:29 orthopedic referral - Please call patient to schedule appt. Thank you 2017 018 tashia [facility], [address] [facility], [place], [address], 8 11:28:58 Procedures None recorded. Surgeries None recorded. Imaging LDCT, chest, for lung cancer screening [address] ([facility]), [address] [place], [address], 9 13:20:05 MAMMO, screening, digital, bilateral [address] ([facility]), [address] [place], [address], 9 13:20:05 CT, abdomen + pelvis, w/ contrast 2017 018 [facility] ([facility]), [address] [place], [address], 8 16:46:08 Medication Orders omeprazole 40 mg capsule,de layed release 2018 019 [id number], [address], [id number], 9 13:19:31 gabapentin 300 mg capsule 2018 019 [facility]95939, [address], [id number], 9 13:14:25 tramadol 50 mg tablet 2017 018 [facility] #30815, [address], [place], [place], [id number], 8 18:30:32 ibuprofen 600 mg tablet 2017 018 [facility] #74441, [address], [place], [place], [id number], 8 18:30:16 gabapentin 300 mg capsule 2017 018 [facility] #[id number], [address], [place], [place], [id number], 8 18:30:15 Patient TargetsNo targets recorded. Patient InstructionsNo instructions recorded. Reason for Referral Orthopedic Referral for Mult iple joint pain wants second opinion on right hip Please call patient to schedule appt. Thank you Referring Physician: Laura Webb, Internal Medicine, Encounter Date: 09/19/2017 General Surgeon Referral for Hernia of abdominal wall Please call patient to schedule appt. Feryou Referring Physician: Laura Webb, Internal Medicine, Encounter Date: 03/20/2018 Results Created Date Observation Date Name Description Value Unit Range Abnormal Flag Note LastModifiedBy Organization Detail LastModifiedTime 07/21/19 18 07/21/2017 BMP, serum or plasm a glucose 93 mg/dL 65-99 Not Available [facility] ([facility]) [address] [place], [address], 07/21/2017 06:18:31 07/21/19 18 07/21/2017 BMP, serum or plasm a BUN 19 mg/dL 6-24 Not Available [facility] ([facility]) [address] [place], [address], 07/21/2017 06:18:31 07/21/19 18 07/21/2017 BMP, serum or plasm a creatinine 0.71 mg/dL 0.57-1 .00 Not Available [facility] ([facility]) [address] [place], [address], 07/21/2017 06:18:31 07/21/19 18 07/21/2017 BMP, serum or plasm a eGFR if nonafricn AM 94 mL/mi n/1.7 3 >59 Not Available [facility] ([facility]) [address] [place], [address], 07/21/2017 06:18:31 07/21/19 18 07/21/2017 BMP, serum or plasm a eGFR if africn AM 108 mL/mi n/1.7 3 >59 Not Available [facility] ([facility]) [address] [place], [address], 07/21/2017 06:18:31 07/21/19 18 07/21/2017 BMP, serum or plasm a BUN/creatini ne ratio 27 9-23 above high normal Not Available [facility] ([facility]) [address] [place], [address], 07/21/2017 06:18:31 07/21/19 18 07/21/2017 BMP, serum or plasm a sodium 142 mmol/ L 134-14 4 Not Available [facility] ([facility]) [address] [place], [address], 07/21/2017 06:18:31 07/21/19 18 07/21/2017 BMP, serum or plasm a potassium 3.9 mmol/ L 3.5-5. 2 Not Available [facility] ([facility]) [address] [place], [address], 07/21/2017 06:18:31 07/21/19 18 07/21/2017 BMP, serum or plasm a chloride 102 mmol/ L 96-106 Not Available [facility] ([facility]) [address] [place], [address], 07/21/2017 06:18:31 07/21/19 18 07/21/2017 BMP, serum or plasm a carbon dioxide, total 24 mmol/ L 18-29 Not Available [facility] ([facility]) [address] [place], [address], 07/21/2017 06:18:31 09/23/19 20 09/25/2019 O&P (ova & kristie ites) , stool ova + parasite exam Final report These resul ts were obtai farooq using wet prepa ratio n(s) and trich jayashree stain ed smear . This test does not inclu de testi ng for Crypt ospor idium parvu m, Cyclo spora , or Micro spori mat. Not Available [facility] ([facility]) [address] [place], [address], 09/25/2019 17:09:09 09/23/19 20 09/25/2019 O&P (ova & kristie ites) , stool result 1 Commen t No ova, cysts , or kristie ites seen. One negat hung speci men does not rule out the possi bilit y of a kristie itic infec tion. Not Available [facility] ([facility]) [address] [facility], [place], [address], 09/25/2019 17:09:09 02/02/20 17 01/31/2017 MAMMO , tricia wilson, bilat eral No observ ation record ed. [address] (Imaging) [address] [place], [address], 02/01/2017 15:53:40 02/07/20 17 02/06/2017 XR, shoul tristin No observ ation record ed. [address] (Imaging) [address] [place], [address], 02/08/2017 10:20:20 02/08/20 17 02/07/2017 LDCT, chest , for lung cance r tricia wilson No observ ation record ed. [address] (Imaging) [address] [place], [address], 02/08/2017 10:20:20 03/20/19 18 nerve condu ction study /EMG (PROC ) No observ ation record ed. [address], [place], [address], 03/26/2017 11:57:07 07/09/19 18 07/08/2017 XR, foot No observ ation record ed. [address] (Imaging) [address] [place], [address], 07/12/2017 21:17:30 07/26/19 18 07/25/2017 CT, abdom en + pelvi s, w/ contr ast No observ ation record ed. [address] (Imaging) [address] [place], [address], 08/02/2017 19:44:54 09/08/19 18 09/07/2017 MRI, foot, w/o contr ast No observ ation record ed. [address] (Imaging) [address] [place], [address], 09/19/2017 15:45:35 12/12/19 18 12/06/2017 CT, neck, soft tissu e, w/o contr ast No observ ation record ed. [facility] (Imaging) [address] [place], [address], 12/12/2017 07:01:09 12/12/19 18 09/07/2017 MRI, foot, w/o contr ast No observ ation record ed. [facility] Add On Lab Orders [address] [place], [address], 12/13/2017 08:10:04 12/12/19 18 07/25/2017 CT, abdom en + pelvi s, w/ contr ast No observ ation record ed. [facility] (Imaging) [address] [place], [address], 12/12/2017 06:59:59 04/25/19 19 04/25/2018 LDCT, chest , for lung cance r scree katie No observ ation record ed. [address] (Imaging) [address] [place], [address], 06/13/2018 19:14:43 07/27/19 19 07/26/2018 XR, chest , 2 view No observ ation record ed. [email or web address] Not Available 2018 02:16:14 Result Notes None recorded. Problems Name Problem SNOMED Code Status Onset Date Resolution Date Notes Provider Name and Address Organization Details Recorded Time Pain in left arm 725314724 Active 2016 Laura Webb MD Attn: Hansastephanie reddy,[address] [facility], [place], [address], [place] [facility] 7 12:34:53 Chronic obstructi ve pulmonary disease 04055998 Active 2016 Laura Webb MD Attn: Hansastephanie reddy,[address] [facility], [place], [address], [place] [facility] 7 12:38:52 Former heavy tobacco smoker 230502172222 100 Active 2016 Laura Webb MD Attn: Hansastephanie reddy,[address] [facility], [place], [address], [place] [facility] 7 12:39:39 Pain in right foot 568415020419 107 Active 2017 Laura Webb MD Attn: George barry,[address] [place], [address] [facility] 8 18:21:19 Diverticu lar disease 183203700 Active 2018 Laura Webb MD Attn: George barry,[address] [facility], [place], [address], [place] [facility] 9 13:06:36 History of polyp of colon 423106914 Active 2018 Laura Webb MD Attn: George reddy,[address] [place], [address] [facility] 9 13:07:05 Hernia of abdominal wall Active 2018 Laura Webb MD Attn: George reddy,[address] [place], [address], [place] [facility] 9 13:18:27 Parasitic disease 99761938 Active 2019 Laura Webb MD Attn: George reddy,[address] [place], [address], [place] [facility] 0 12:17:26 Right lower quadrant pain 413621590 Active Laura Webb MD Attn: Accountin g,[address] [facility], [place], [address], [place] [facility] 5 16:46:30 Paresthes ia of hand 218235248 Active Laura eWbb MD Attn: Accountin g,[address] [facility], [place], [address], [place] [facility] 6 15:16:51 Blood in urine 03673479 Active Madeleine Perry MD Attn: Accountin g,[address] [facility], [place], [address], [place] [facility] 5 10:59:12 Alteratio n in bowel eliminati on 148857548 Active Laura Webb MD Attn: Accountin g,[address] [facility], [place], [address] [facility] 5 16:08:59 Inguinal pain 274731838 Active Laura Webb MD Attn: Accountstephanie g,[address] [facility], [place], [address], [place] [facility] 5 16:46:30 Low back pain 577113499 Active Laura Webb MD Attn: Hansastephanie g,[address] [facility], [place], [address], [place] [facility] 6 15:16:51 Osteopeni a 604498332 Completed 12/27/2016 Laura Webb MD Attn: Accountstephanie g,[address] [facility], [place], [address], [place] [facility] 7 12:41:41 Carotid atheroscl erosis 501556578 Active Laura Webb MD Attn: Accountstephanie g,[address] [facility], [place], [address], [place] [facility] 5 16:46:30 Complicat ion of surgical procedure 18921403 Completed 12/27/2016 Laura Webb MD Attn: Accountstephanie g,[address] [facility], [place], [address] [facility] 7 12:41:52 Leakage of breast implant 703405546 Active Laura Webb MD Attn: Accountin g,[address] [facility], [place], [address] [facility] 5 19:00:03 Breast lump 64672760 Active Savanah Villafana LPN null, [place] [facility] 5 11:50:19 Bronchiti s 52495924 Active Laura Webb MD Attn: Accountin g,[address] [facility], [place], [address], [place] [facility] 6 13:43:48 Primary osteoporo sis 856447813 Active Laura Webb MD Attn: Accountin g,[address] [facility], [place], [address], [place] [facility] 5 15:25:54 Chronic osteoarth ritis 29779469 Active Laura Webb MD Attn: Accountin g,[address] [facility], [place], [address], [place] [facility] 6 15:16:51 Pain radiating to left leg 819589970 Active Laura Webb MD Attn: Accountin g,[address] [facility], [place], [address], [place] [facility] 6 15:16:51 Pain radiating to right leg 849348351 Active Laura Webb MD Attn: Accountin g,[address] [facility], [place], [address], [place] [facility] 6 15:16:51 Raynaud's phenomeno n 153724446 Shanae Webb MD Attn: George g,[address] [facility], [place], [address], [place] [facility] 6 15:06:29 Unilatera l headache Active Laura Webb MD Attn: George reddy,[address] [place], [address], [place] [facility] 6 15:06:29 Gastroeso phageal reflux disease 964975427 Active Laura Webb MD Attn: George barry,[address] [place], [address], [place] [facility] 6 15:16:51 Muscle pain 52330990 Active 2016 Laura Webb MD Attn: George barry,[address] [place], [address], [place] [facility] 7 13:26:54 Multiple joint pain 38677920 Active 2016 Laura Webb MD Attn: George barry,[address] [place], [address] [facility] 7 13:27:38 Fatigue 03430578 Active 2016 Laura Webb MD Attn: George barry,[address] [place], [address], [place] [facility] 7 13:27:59 Lesion of neck 774865440 Active 2016 Laura Webb MD Attn: George barry,[address] [place], [address], [place] [facility] 7 13:30:56 Screening for malignant neoplasm of breast Active 2016 Laura Webb MD Attn: George reddy,[address] [place], [address], [place] [facility] 7 12:44:00 Active immunizat ion Active 2016 Laura Webb MD Attn: George reddy,[address] [place], [address] [facility] 7 12:45:56 Problem Notes None recorded. Procedures Surgical History Date Name Laterality Status Provider Name and Address Organization Details Recorded Time Hysterectomy completed Kee Woods [place] [facility] 04/29/2014 15:25:30 Mastectomy completed Laura Webb MD Attn: Accounting,[address] [facility], [place], [address], [facility] 04/29/2014 15:46:05 Hernia Repair completed Kee Woods MA [facility] 04/29/2014 15:25:30 Other completed Kee Woods MA [facility] 04/29/2014 15:25:30 Imaging Results Imaging Date Name Status LastModified by Organiz ation Details LastModified Time 01/31/2017 MAMMO, screening, bilateral completed [address] (Imaging) [address] [place], [address], 02/01/2017 15:53:40 02/06/2017 XR, shoulder completed [address] (Imaging) [address] [place], [address], 02/08/2017 10:20:20 02/07/2017 LDCT, chest, for lung cancer screening completed [address] (Imaging) [address] [place], [address], 02/08/2017 10:20:20 03/20/2017 nerve conduction study/EMG (PROC) completed [address], [address], 03/26/2017 11:57:07 07/08/2017 XR, foot completed [address] (Imaging) [address] [place], [address], 07/12/2017 21:17:30 07/25/2017 CT, abdomen + pelvis, w/ contrast completed [address] (Imaging) [address] [place], [address], 08/02/2017 19:44:54 09/07/2017 MRI, foot, w/o contrast completed [address] (Imaging) [address] [place], [address], 09/19/2017 15:45:35 12/06/2017 CT, neck, soft tissue, w/o contrast completed [facility] (Imaging) [address] [place], [address], 12/12/2017 07:01:09 09/07/2017 MRI, foot, w/o contrast completed [facility] On Lab Orders [address] [place], [address], 12/13/2017 08:10:04 07/25/2017 CT, abdomen + pelvis, w/ contrast completed [facility] (Imaging) [address] [place], [address], 12/12/2017 06:59:59 04/25/2018 LDCT, chest, for lung cancer screening completed [address] (Imaging) [address] [place], [address], 06/13/2018 19:14:43 07/26/2018 XR, chest, 2 view completed [place] [address] Information not available 08/07/2018 02:16:14 Procedure Notes None recorded. Medical Equipment None Reported. Allergies Allergen ID Allergen Name Allergen Category Reaction Reaction Severity Criticality Documentation Date Start Date Code Code System Note Provider Name and Address Organization Details Recorded Time 18480 codeine medicatio n nausea Not available Not available 04/29/2014 2670 RxNorm Not Available Not Available Not Available Medications Name Sig Start Date Stop Date Status Note LastModified by Organization Details LastModified Time prednisone 10 mg tablet active Not Available Not Available Not Available lamotrigine 200 mg tablet active Not Available Not Available Not Available meloxicam 15 mg tablet active Not Available Not Available No t Available metronidazol e 250 mg tablet active Not Available Not Available Not Available methylphenid ate ER 54 mg tablet,exten ded release 24 hr 12/18 completed Not Available Not Available Not Available ciprofloxaci n 250 mg tablet Take 1 tablet every 12 hours by oral route for 5 days. 12/18 completed Not Available Not Available Not Available omeprazole 40 mg capsule,kimber yed release active Not Available Not Available Not Available tramadol 50 mg tablet Take 1 tablet every 8 hours by oral route. active Not Available Not Available No t Available dextroamphet amine-amphet amine 30 mg tablet active Not Available Not Available Not Available doxycycline monohydrate 100 mg capsule active Not Available Not Available Not Available trazodone 150 mg tablet active Not Available Not Available Not Available gabapentin 300 mg capsule TAKE 1 CAPSULE BY MOUTH THREE TIMES DAILY active Not Available Not Available No t Available gabapentin 100 mg capsule Take 1 capsule 3 times a day by oral route. 07/18 completed Not Available Not Available Not Available ergocalcifer ol (vitamin D2) 1,250 mcg (50,000 unit) capsule Take 1 capsule every week by oral route. 2014 active Not Available Not Available Not Avai lable ibuprofen 600 mg tablet Take 1 tablet 3 times a day by oral route as needed. active Not Available Not Available No t Available polyethylene glycol 3350 17 gram/dose oral powder active Not Available Not Available Not Available fluticasone propionate 50 mcg/actuatio n nasal spray,suspen alex SHAKE LIQUID AND USE 2 SPRAYS IN EACH NOSTRIL EVERY DAY active Not Available Not Available No t Available naproxen 500 mg tablet TAKE ONE TABLET BY MOUTH TWICE A DAY WITH MEALS FOR BACK PAIN active Not Available Not Available No t Available amoxicillin 875 mg-potassium clavulanate 125 mg tablet Take 1 tablet every 12 hours by oral route for 10 days. active Not Available Not Available No t Available Amphetamine Salt Combo 30 mg tablet 12/18 completed Not Available Not Available Not Available lactulose 10 gram/15 mL oral solution active Not Available Not Available Not Available Vitals Date Recorded Body height Body mass index (BMI) Body weight Heart rate Oxygen saturation Oxygen saturation in Arterial blood by Pulse oximetry Body temperature Systolic blood pressure Diastolic blood pressure Provider Name and Address Organization Details Last Updated DateTime 7 154.94 cm 24.8 kg/m2 15326.6 g 76 /min 98 % 98 % 97.6 [degF] 104 mm[Hg] 64 mm[Hg] Erna Ceja [place] [facility] 7 12:24:00 Date Recorded Body height Body mass index (BMI) Body weight Body temperature Oxygen saturation Oxygen saturation in Arterial blood by Pulse oximetry Systolic blood pressure Diastolic blood pressure Provider Name and Address Organization Details Last Updated DateTime 8 154.94 cm 24.6 kg/m2 24484.0 1 g 97.9 [degF] 98 % 98 % 134 mm[Hg] 80 mm[Hg] Erna Ceja MA [facility] 8 17:40:29 Date Recorded Body height Body mass index (BMI) Body weight Heart rate Body temperature Oxygen saturation Oxygen saturation in Arterial blood by Pulse oximetry Systolic blood pressure Diastolic blood pressure Provider Name and Address Organization Details Last Updated DateTime 8 154.94 cm 24.6 kg/m2 75455.0 1 g 80 /min 97.6 [degF] 98 % 98 % 124 mm[Hg] 80 mm[Hg] Erna Ceja MA [facility] 8 13:00:10 Date Recorded Body height Body mass index (BMI) Body weight Body temperature Oxygen saturation Oxygen saturation in Arterial blood by Pulse oximetry Heart rate Systolic blood pressure Diastolic blood pressure Provider Name and Address Organization Details Last Updated DateTime 9 154.94 cm 23.2 kg/m2 97973.8 6 g 98.1 [degF] 97 % 97 % 83 /min 124 mm[Hg] 72 mm[Hg] Erna Ceja MA [facility] 9 12:27:50 Social History Question Answer Notes LastModified by Organizat ion Details LastModified Time Tobacco Smoking Status Former Smoker Kee Woods MA [facility], [facility] 04/29/2014 15:25:29 What Is Your Level Of Alcohol Consumption? Occasional Information not available 04/29/2014 What Is Your Level Of Caffeine Consumption? Heavy Information not available 04/29/2014 What Was The Date Of Your Most Recent Tobacco Screening? 03/20/2018 Information not available 09/26/2018 Sex: Unknown Functional Status None recorded. Mental Status None recorded. Family History Relationship Description Onset Age of this Age Resolved Age Notes LastModified by Organization Details LastModified Time Mother Diabetes mellitus [email or web address] Not available 01/03 14:30:26 Mother Heart disease [email or web address] Not available 01/03 14:30:26 Mother Kidney disease [email or web address] Not available 01/03 14:30:26 Mother Depressive disorder [email or web address] Not available 01/03 14:30:26 Father Diabetes mellitus [email or web address] Not available 01/03 14:30:26 Father Heart disease [email or web address] Not available 01/03 14:30:26 Paternal Aunt Heart disease [email or web address] Not available 01/03 14:30:26 Paternal Aunt Malignant tumor of breast [email or web address] Not available 01/03 14:30:26 Paternal Uncle Heart disease [email or web address] Not available 01/03 14:30:26 Medical History Condition Response Anxiety Disorder Y High Cholesterol Y Acid Reflux (GERD) Y Cancer Y Kidney or Bladder Problems Y Osteoporosis Y GI Problems Y Depression Y Allergies Y Gynecological History Statement/Question Response Current Control Method Hysterectom y Obstetrics History GPAL:G 0 P 0 0 0 0 Immunizations Vaccine Type Date Status Note Provider Nam e and Address Organization Details Recorded Time Influenza, split virus, quadrivalent, preservative 6 completed Not Available [facility] 03/22/2019 02:32:32 pneumococcal polysaccharide PPV23 6 completed Not Available [facility] 03/22/2019 02:29:54 Influenza, split virus, quadrivalent, preservative 7 completed Not Available [facility] 03/22/2019 02:51:00 Past Encounters Encounter ID Performer Location Encounter Start Date Encounter Closed Date Diagnosis/Indication Diagnosis SNOMED-CT Code Diagnosis ICD10 Code Diagnosis Note [id number] ASHLEY Almonte (Adult Med) [address] [place] [phone] 04/29/2014 15:05:10 04/29/2014 16:13:01 Right lower quadrant pain 987094380 Paresthesia of hand 736982633 right Blood in urine 33743709 Personal h istory of primary malignant neoplasm of breast 892668951 Alteration in bowel elimination 114199533 History of polyp of colon 179291201 [id number] VI Koenig (Adult Med) [address] [place] [address] 08/19/2014 15:42:46 08/19/2014 16:49:53 Right lower quadrant pain 551193810 Inguinal pain 488613387 Low back pain 147934960 Osteopenia 946440989 Carotid atherosclerosis 131968139 [id number] Rebecca Alfonso is Maryjane (Adult Med) [address] [place] [id number] 01/13/2015 14:10:36 01/13/2015 15:27:29 Bronchitis 66710641 J40 Primary osteoporosis 276 495231 M81.0 Chronic osteoarthritis 00889087 M19.90 Back,hip,w rists Low back pain 789389504 M54.5 [id number] Rebecca Alfonso is Maryjane (Adult Med) [address] [place] [id number] 06/09/2015 13:59:06 06/09/2015 15:09:30 Low back pain 851615589 M54.5 Pain radia ting to left leg 736007121 M79.609 Pain radia ting to right leg 520650462 M79.609 Raynaud's phenomenon 266 251991 I73.00 Unilateral headache 1030 87504 R51 Since Jan 2015. Post injury from syncopal episode Gastroesop hageal reflux disease 715237542 K21.9 [id number] Rebecca Alfonso is Maryjane (Adult Med) [address] [place] [id number] 09/01/2015 12:37:17 09/01/2015 17:55:10 Low back pain 343806773 M54.5 Gastroesop hageal reflux disease 396761139 K21.9 Bronchitis 77212072 J40 [id number] Aixa Wesley (Adult Med) [address] [place] [phone] 12/15/2015 14:08:52 12/16/2015 11:57:45 Chronic osteoarthritis 28226628 M19.90 Back,hip,w rists Gastroesop hageal reflux disease 517575133 K21.9 Low back pain 733076167 M54.5 Pain radia ting to right leg 278909149 M79.609 Pain radia ting to left leg 092092176 M79.609 Paresthesia of hand 3090 00175 R20.2 right Personal h istory of primary malignant neoplasm of breast 210736686 Z85.3 Administra tion of influenza vaccine 86805605 Z23 [id number] MD Maryjane New (Adult Med) [address] [place] [id number] 11/29/2016 12:15:30 11/29/2016 13:37:47 Muscle pain 88840348 M79.1 Fatigue 67128752 R53.83 Multiple joint pain 3567 8005 M25.50 Lesion of neck 043661427 L98.9 [id number] MD Maryjane New (Adult Med) [address] [place] [id number] 12/27/2016 11:55:21 12/27/2016 12:59:57 Multiple joint pain 88973742 M25.50 Inguinal pain 563299681 R10.2 Primary osteoporosis 276 902454 M81.0 Paresthesia of hand 3090 28195 R20.2 Screening for malignant neoplasm of breast 524837165 Z12.31 Active immunization 3387 9002 Z23 [id number] MD Maryjane New (Adult Med) [address] [place] [address] [phone] 01/22/2017 11:10:51 01/22/2017 14:27:57 Pain in left arm 119516347 M79.602 Restart gabapentin plus ibuprofen Raynaud's phenomenon 266 445472 I73.00 Chronic ob structive pulmonary disease 90867157 J44.9 Former hea vy tobacco smoker [id number] 50746 Z87.316 [id number] MD Maryjane New (Adult Med) [address] [place] [address] [phone] 02/21/2017 12:04:48 02/21/2017 14:02:25 Pain in left arm 056579916 M79.602 F/U with ortho as scheduled [id number] MD Maryjane New (Adult Med) [address] [place] [address] [phone] 07/18/2017 16:56:30 07/19/2017 09:33:50 Right lower quadrant pain 605691399 R10.31 Pain in right foot 50200 58813 21629 M79.402 [id number] MD Maryjane New (Adult Med) [address] [place] [address] [phone] 09/19/2017 12:11:16 09/20/2017 11:06:41 Pain in right foot [id number] 30751 M79.671 Multiple joint pain 3567 8005 M25.50 Raynaud's phenomenon 266 691012 I73.00 Primary osteoporosis 276 805644 M81.0 [id number] MD Maryjane New (Adult Med) [address] [place] [address] [phone] 03/20/2018 12:04:10 03/21/2018 09:22:32 Diverticular disease 620299751 K57.90 History of polyp of colon 657623265 Z86.010 Pain radia ting to left leg 062558867 M79.609 Gastroesop hageal reflux disease 778970464 K21.9 Screening for malignant neoplasm of breast 700131121 Z12.31 Former hea vy tobacco smoker [id number] 58447 Z87.891 Hernia of abdominal wall 886720067 K43.6 [id number] Laura Webb MD [facility] (Adult Med) [address] [place] [address] [phone] 09/22/2019 10:46:29 09/23/2019 10:35:05 Parasitic disease [id number] B89 Health Concerns Section Related Observation LastModified by Organization Detai ls LastModified Time None Recorded Concern Status LastModified by Organization Details LastModified Time None Recorded Advance Directives Directive None Recorded Payers Encounter Date Sequence Insurance Name Policy Number Policy Bermeo Covered Member ID Bermeo Member ID Guarantor Name 02/21/2017 1 [facility] PRIOR TO 09/02/2020 (MEDICAID REPLACEMENT - HMO) Tatyana Beltran [id number] Tatyana Beltran 07/18/2017 1 [facility] PRIOR TO 09/02/2020 (MEDICAID REPLACEMENT - HMO) Tatyana Beltran [id number] Tatyana Beltran 09/19/2017 1 [facility] PRIOR TO 09/02/2020 (MEDICAID REPLACEMENT - HMO) Tatyana Beltran [id number] Tatyana Beltran 03/20/2018 1 [facility] PRIOR TO 09/02/2020 (MEDICAID REPLACEMENT - HMO) Tatyana Beltran [id number] Tatyana Beltran 09/22/2019 1 [facility] PRIOR TO 2020 (MEDICAID REPLACEMENT - HMO) Tatyana Beltran [id number] Tatyana Beltran Notes Date Note Type Note Provider Name and Address Organization Details Recorded Time 02/21/2017 text/html No change in arm pain. Scheduled to see Ortho in one month Laura Webb MD Attn: [address] [place], [address], [facility] 02/21/2017 12:35:19 07/18/2017 text/html Developed pain i n right foot six weeks ago. No fx on xrays. Still painful. Pain in right groin persists Laura Webb MD Attn: [address] [place], [address], [facility] 07/18/2017 18:37:52 09/19/2017 text/html Surgery has been recommended by catering sous chef. Pt wants referral to marketing clerk/ort hopedist for second opinion. Laura Webb MD Attn: [address] [place], [address], [facility] 09/19/2017 13:21:32 03/20/2018 text/html no new complaint s. Seeing ortho for wrists, hands and feet. has upper abd hernia which is painful at times. Laura Webb MD Attn: [address] [place], [address], [facility] 03/20/2018 13:21:39 09/22/2019 text/html Telephone visit due to Covid-19 precautions. Pt unavailable for first call. Unable to leave voice message. Spoke wit pt. She was out if state developed diarrhea, N/V. Saw brown worms in her stool yesterday. Laura Webb MD Attn: [address] [place], [address], [facility] 09/22/2019 12:18:55 OBGyn Episode No OBEpisode recorded.
== END 2024-05-12 14:44 | disposition home or self-care (01) ==
PROVIDERS: PCP Nurse Practitioner; Visit Provider Nurse Practitioner
DX: Z13.820 Encounter for screening for osteoporosis (principal); M81.0 Age-related osteoporosis without current pathological fracture; M85.851 Other specified disorders of bone density and structure, right thigh
CPT/HCPCS: 77080

== ENCOUNTER 2024-12-31 01:47 | Day surgery (SDC) | payer MEDICARE, SELFPAY ==
[2024-12-22 14:17] VITALS: BMI 20.6
[2024-12-31 12:16] VITALS: BP 103/54; PULSE 66; RESP 18; TEMP 36.6; O2SAT 98
[2024-12-31] MEDS: LACTATED RINGERS 1,000 ML 150 ML IV CONT (12:25)
--- NOTE | 2024-12-31 13:04 | WPDANESEPPF ---
Anes - Initial Pre Proc Eval Procedure: Operation Date: 12/31/24 12:30 Proposed Procedures p EGD & Screening Colonoscopy - Jonas Miller MD Date/Time: 12/31/24 13:04 Surgeon: Jonas Miller MD Pre Op Diagnosis: GERD,screening,hx of colon polyps Patient Data Age: 64 Gender: F Height: 1.52 m Weight: 47.6 kg Last Vital Signs Temp 97.9 F 12/31/24 12:16 Pulse 66 12/31/24 12:16 Resp 18 12/31/24 12:16 BP 103/54 L 12/31/24 12:16 Pulse Ox 98 12/31/24 12:16 O2 Del Method Room Air 12/31/24 12:16 Allergies Allergy/AdvReac Type Severity Reaction Status Date / Time morphine Allergy Mild NAUSEA/VOMI Verified 12/22/24 14:21 TING povidone Allergy Mild Rash Verified 12/22/24 14:21 SURGICAL TAPE Allergy Mild RASH Uncoded 11/12/23 08:37 Home Medications ?Medication ?Instructions ?Recorded ?Confirmed ?Type dextroamphetamine-amphetamine 30 1 tablet PO DIRECTED 08/27/23 12/31/24 History mg tablet lamotrigine 200 mg tablet 200 mg PO DIRECTED 08/27/23 12/31/24 History trazodone 150 mg tablet 150 mg PO DIRECTED 08/27/23 12/31/24 History ascorbic acid (vitamin C) 500 mg 500 mg PO DAILY 10/23/23 12/31/24 History capsule cholecalciferol (vitamin D3) 50 50 mcg PO DAILY 10/23/23 12/31/24 History mcg (2,000 unit) tablet (Vitamin D3) magnesium 500 mg tablet 500 mg PO BID 10/23/23 12/31/24 History omega-3 fatty acids-vitamin E 1 cap PO DAILY 10/23/23 12/31/24 History 1,000 mg capsule vitamin E 100 unit capsule 100 unit PO DAILY 10/23/23 12/31/24 History pantoprazole 40 mg tablet,delayed 40 mg PO BID #60 tabs 11/06/23 12/31/24 Rx release Patient hx anesthesia problems: none Family hx anesthesia problems: none Results Review: All pre-operative results and documents have been reviewed as part of the pre-operative evaluation. PMFSH Past Medical History Medical History History of bilateral breast cancer TRAM flap Osteoporosis IBS (irritable bowel syndrome) Hepatitis Hep B COPD (chronic obstructive pulmonary disease) Cancer Arthritis Allergies GERD (gastroesophageal reflux disease) Surgical History Surgical History History of reconstruction of both breasts History of tubal ligation History of appendectomy Hx of breast surgery reconstruction Hx of hysterectomy Hx of hernia repair Hx of mastectomy TRAM flap Family History Family History Mother Depression Diabetes mellitus Heart disease Hypertension Cerebrovascular accident Father Diabetes mellitus Heart disease Hypertension Cerebrovascular accident Social History Social History Smoking packs per day: 2 Smoking cigarettes per day: 40.0 Years smoked: 45 Smoking pack-years: 90.00 Smoking status: Former smoker Tobacco type: cigarettes Alcohol intake: current Alcohol use details: rarely Substance use: current Substance use type: marijuana Do You Feel Safe in your Home?: Yes Lack of Transportation: No Lack of Food: Never True Current Housing: I Do Not Have Housing Concerned About Future Housing: No Difficulty Paying Gas/Electric Bills: No Difficulty Paying for Meds: YES Currently Unemployed: No Education: High School Diploma/GED Difficulty w/ Childcare or Family Care: No Living arrangements: alone Spiritual care concerns: No Comments pt scheduled for stress test next sunday. states can do flight of stairs without chest pain. Anes - Eval Final PreProcedure Day of Procedure 12/31/24 13:04 Patient weight: normal Heart: regular rate and rhythm Lungs: clear to auscultation and decreased breath sounds Neurological: alert and oriented Last oral intake: >/= 8 hours ASA classification: III Anesthetic plan: proceed Anesthesia type and monitoring: general GIVS Results Review: All pre-operative results and documents have been reviewed as part of the pre-operative evaluation. Informed Consent: The patient's anesthetic plan and its attendant risks and benefits were discussed with the patient/family/POA. Questions were solicited and answers provided to the satisfaction of the patient/family/POA.
--- NOTE | 2024-12-31 13:07 | PM.HPGS ---
History of Present Illness History of Present Illness Consent: Risks, benefits, and alternatives have been discussed and questions answered. Patient agrees to proceed with procedure. Chief complaint: GERD,screening,hx of colon polyps Narrative: Tatyana Beltran is a 64 year old female with known gerd with last egd 2023 doing well on ppi but she could not refill it and now symptomatic again, also large sigmoid polyp removed by EMR last year Review of Systems Review of Systems: All systems reviewed & are unremarkable except as noted in HPI and below PMFSH Past Medical History Medical History History of bilateral breast cancer TRAM flap Osteoporosis IBS (irritable bowel syndrome) Hepatitis Hep B COPD (chronic obstructive pulmonary disease) Cancer Arthritis Allergies GERD (gastroesophageal reflux disease) Surgical History Surgical History History of reconstruction of both breasts History of tubal ligation History of appendectomy Hx of breast surgery reconstruction Hx of hysterectomy Hx of hernia repair Hx of mastectomy TRAM flap Family History Family History Mother Depression Diabetes mellitus Heart disease Hypertension Cerebrovascular accident Father Diabetes mellitus Heart disease Hypertension Cerebrovascular accident Social History Social History Smoking packs per day: 2 Smoking cigarettes per day: 40.0 Years smoked: 45 Smoking pack-years: 90.00 Smoking status: Former smoker Tobacco type: cigarettes Alcohol intake: current Alcohol use details: rarely Substance use: current Substance use type: marijuana Do You Feel Safe in your Home?: Yes Lack of Transportation: No Lack of Food: Never True Current Housing: I Do Not Have Housing Concerned About Future Housing: No Difficulty Paying Gas/Electric Bills: No Difficulty Paying for Meds: YES Currently Unemployed: No Education: High School Diploma/GED Difficulty w/ Childcare or Family Care: No Living arrangements: alone Spiritual care concerns: No Meds Home Medications and Allergies Home Medications ?Medication ?Instructions ?Recorded ?Confirmed ?Type dextroamphetamine-amphetamine 30 1 tablet PO DIRECTED 08/27/23 12/31/24 History mg tablet lamotrigine 200 mg tablet 200 mg PO DIRECTED 08/27/23 12/31/24 History trazodone 150 mg tablet 150 mg PO DIRECTED 08/27/23 12/31/24 History ascorbic acid (vitamin C) 500 mg 500 mg PO DAILY 10/23/23 12/31/24 History capsule cholecalciferol (vitamin D3) 50 50 mcg PO DAILY 10/23/23 12/31/24 History mcg (2,000 unit) tablet (Vitamin D3) magnesium 500 mg tablet 500 mg PO BID 10/23/23 12/31/24 History omega-3 fatty acids-vitamin E 1 cap PO DAILY 10/23/23 12/31/24 History 1,000 mg capsule vitamin E 100 unit capsule 100 unit PO DAILY 10/23/23 12/31/24 History pantoprazole 40 mg tablet,delayed 40 mg PO BID #60 tabs 11/06/23 12/31/24 Rx release Allergies Allergy/AdvReac Type Severity Reaction Status Date / Time morphine Allergy Mild NAUSEA/VOMI Verified 12/22/24 14:21 TING povidone Allergy Mild Rash Verified 12/22/24 14:21 SURGICAL TAPE Allergy Mild RASH Uncoded 11/12/23 08:37 Vital Signs Vital Signs - 24 hr 12/31/24 12:16 Temperature 97.9 F Pulse Rate 66 Respiratory Rate 18 Blood Pressure 103/54 L Pulse Oximetry 98 Oxygen Delivery Room Air Exam Const: General: comfortable and no acute distress HENMT: Face/Nose/Sinus: Normal nares present Resp: Auscultation: clear to auscultation bilaterally Cardio: Rate: regular rate Rhythm: regular rhythm GI: Inspection: non-distended GI Palp: Yes Soft to palpation Skin: General skin exam: normal color Extrem: General: normal to inspection Psych: Mental Status: mental status grossly normal Assessment and Plan Assessment and plan (1) GERD with esophagitis: Qualifiers: Esophagitis bleeding: unspecified whether hemorrhage Qualified Code(s): K21.00 - Gastro-esophageal reflux disease with esophagitis, without bleeding Code(s): K21.00 - Gastro-esophageal reflux disease with esophagitis, without bleeding Status: Acute Assessment and Plan: egd (2) Adenomatous polyp of sigmoid colon: Code(s): D12.5 - Benign neoplasm of sigmoid colon Status: Acute Assessment and Plan: colonoscopy
--- NOTE | 2024-12-31 13:17 | S_PTH ---
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
--- NOTE | 2024-12-31 13:22 | SUR.OPER ---
EGD ended at 1317, Colon began at 1322.
[2024-12-31 13:42] VITALS: BP 102/67; PULSE 65; RESP 17; O2SAT 100
[2024-12-31 13:52] VITALS: BP 122/69; PULSE 53; RESP 17; O2SAT 98
[2024-12-31 14:02] VITALS: BP 148/71; PULSE 74; RESP 22; O2SAT 98
== END 2024-12-31 14:15 | disposition home or self-care (01) ==
PROVIDERS: PCP Nurse Practitioner; Visit Provider Internal Medicine Gastroenterology
PROC: 0DJ08ZZ Inspection of Upper Intestinal Tract, Via Natural or Artificial Opening Endoscopic (ICD-10-PCS; CPT 45378; principal; 2024-12-31 12:30)
DX: Z12.11 Encounter for screening for malignant neoplasm of colon (principal); D12.3 Benign neoplasm of transverse colon; K21.00 Gastro-esophageal reflux disease with esophagitis, without bleeding; K29.50 Unspecified chronic gastritis without bleeding; K44.9 Diaphragmatic hernia without obstruction or gangrene; M81.0 Age-related osteoporosis without current pathological fracture; K58.9 Irritable bowel syndrome, unspecified; J44.9 Chronic obstructive pulmonary disease, unspecified; M19.90 Unspecified osteoarthritis, unspecified site; F12.90 Cannabis use, unspecified, uncomplicated; Z98.890 Other specified postprocedural states; Z98.51 Tubal ligation status; Z87.891 Personal history of nicotine dependence; Z85.3 Personal history of malignant neoplasm of breast; Z82.49 Family history of ischemic heart disease and other diseases of the circulatory system
CPT/HCPCS: 43239; 45385; 88305; 88313; 88342; J2003; J2704; J7120

== ENCOUNTER 2025-01-12 15:06 | Outpatient (CLI) | payer MEDICARE, SELFPAY ==
--- OUTSIDE RECORDS SUMMARY | 2025-01-12 15:11 | XMS_ITS | Data Portability ---
Author Organization [facility] NIRMALAAyla Downs Address [address] [place] [address] Assessment No assessment recorded. Plan of Treatment Reminders Order Date Submit Date Provider Last Modified By Organization Details Last Modified Time Details Appointments None recorded. Lab O&P (ova & parasites) , stool 2019 020 [facility], [address], [address], [place], [address], 0 17:09:09 BMP, serum or plasma 2017 018 [facility], [address], [address], [place], [address], 8 06:18:31 Referral general surgeon referral - Please call patient to schedule appt. Thankyou 2018 019 jenna Powers MD, [address] [facility], [facility] [address], [place], [address], 9 07:58:29 orthopedic referral - Please call patient to schedule appt. Thank you 2017 018 tashia [facility], [address] [facility], [place], [address], 8 11:28:58 Procedures None recorded. Surgeries None recorded. Imaging LDCT, chest, for lung cancer screening [address] ([facility]), [address] [place], [address], 9 13:20:05 MAMMO, screening, digital, bilateral [address] ([facility]), [address] [place], [address], 9 13:20:05 CT, abdomen + pelvis, w/ contrast 2017 018 [facility] ([facility]), [address] [place], [address], 8 16:46:08 Medication Orders omeprazole 40 mg capsule,de layed release 2018 019 [id number], [address], [place], [place], [id number], 9 13:19:31 gabapentin 300 mg capsule 2018 019 [id number], [address], [place], [place], [id number], 9 13:14:25 tramadol 50 mg tablet 2017 018 [facility][id number], [address], [place], [place], [id number], 8 18:30:32 ibuprofen 600 mg tablet 2017 018 [facility][id number], [address], [place], [place], [id number], 8 18:30:16 gabapentin 300 mg capsule 2017 018 [facility][id number], [address], [place], [place], [id number], 8 18:30:15 Patient TargetsNo targets recorded. Patient InstructionsNo instructions recorded. Reason for Referral Orthopedic Referral for Pain of multiple joints wants second opinion on right hip Please call patient to schedule appt. Thank you Referring Physician: Laura Webb, Internal Medicine, Encounter Date: 09/19/2017 General Surgeon Referral for Hernia of abdominal wall Please call patient to schedule appt. Thankyou Referring Physician: Laura Webb, Internal Medicine, Encounter Date: 03/20/2018 Results Created Date Observation Date Name Description Value Unit Range Abnormal Flag Note LastModifiedBy Organization Detail LastModifiedTime 07/21/19 18 07/21/2017 BMP, serum or plasm a glucose 93 mg/dL 65-99 Not Available [facility] ([facility]) [address] [place], [address], 07/21/2017 06:18:31 07/21/19 18 07/21/2017 BMP, serum or plasm a BUN 19 mg/dL 6-24 Not Available [facility] ([facility]) [address] [place], [address], 07/21/2017 06:18:31 07/21/19 18 07/21/2017 BMP, serum or plasm a creatinine 0.71 mg/dL 0.57-1 .00 Not Available [facility] ([facility]) [address] [place], [address], 07/21/2017 06:18:31 07/21/19 18 07/21/2017 BMP, serum or plasm a eGFR if nonafricn AM 94 mL/mi n/1.7 3 >59 Not Available [facility] ([facility]) [address] [place], [address], 07/21/2017 06:18:31 07/21/19 18 07/21/2017 BMP, serum or plasm a eGFR if africn AM 108 mL/mi n/1.7 3 >59 Not Available [facility] ([facility]) [address] [place], [address], 07/21/2017 06:18:31 07/21/19 18 07/21/2017 BMP, serum or plasm a BUN/creatini ne ratio 27 9-23 above high normal Not Available [facility] ([facility]) [address] [facility] [place], [address], 07/21/2017 06:18:31 07/21/19 18 07/21/2017 BMP, serum or plasm a sodium 142 mmol/ L 134-14 4 Not Available [facility] ([facility]) [address] [facility] [place], [address], 07/21/2017 06:18:31 07/21/19 18 07/21/2017 BMP, serum or plasm a potassium 3.9 mmol/ L 3.5-5. 2 Not Available [facility] ([facility]) [address] [place], [address], 07/21/2017 06:18:31 07/21/19 18 07/21/2017 BMP, serum or plasm a chloride 102 mmol/ L 96-106 Not Available [facility] ([facility]) [address] [facility] [place], [address], 07/21/2017 06:18:31 07/21/19 18 07/21/2017 BMP, serum or plasm a carbon dioxide, total 24 mmol/ L 18-29 Not Available [facility] ([facility]) [address] [place], [address], 07/21/2017 06:18:31 09/23/19 20 09/25/2019 O&P (ova & kristie ites) , stool ova + parasite exam Final report These resul ts were obtai farooq using wet prepa ratio n(s) and trich jayashree stain ed smear . This test does not inclu de testi ng for Crypt ospor idium parvu m, Cyclo spora , or Micro spori mat. Not Available [facility] ([facility]) [address] [place], [address], 09/25/2019 17:09:09 09/23/19 20 09/25/2019 O&P (ova & kristie ites) , stool result 1 Commen t No ova, cysts , or kristie ites seen. One negat hung speci men does not rule out the possi bilit y of a kristie itic infec tion. Not Available [facility] ([facility]) [address] [facility], [place], [address], 09/25/2019 17:09:09 02/02/20 17 01/31/2017 MAMMO , tricia wilson, bilat eral No observ ation record ed. [address] (Imaging) [address] [place], [address], 02/01/2017 15:53:40 02/07/20 17 02/06/2017 XR, shoul tristin No observ ation record ed. [address] (Imaging) [address] [place], [address], 02/08/2017 10:20:20 02/08/20 17 02/07/2017 LDCT, chest , for lung cance r tricia wilson No observ ation record ed. [address] (Imaging) [address] [place], [address], 02/08/2017 10:20:20 03/20/19 18 nerve condu ction study /EMG (PROC ) No observ ation record ed. [place] [address], [place], [address], 03/26/2017 11:57:07 07/09/19 18 07/08/2017 XR, foot No observ ation record ed. [address] (Imaging) [address] [place], [address], 07/12/2017 21:17:30 07/26/19 18 07/25/2017 CT, abdom en + pelvi s, w/ contr ast No observ ation record ed. [address] (Imaging) [address] [place], [address], 08/02/2017 19:44:54 09/08/19 18 09/07/2017 MRI, foot, w/o contr ast No observ ation record ed. [address] (Imaging) [address] [place], [address], 09/19/2017 15:45:35 12/12/19 18 12/06/2017 CT, neck, soft tissu e, w/o contr ast No observ ation record ed. [facility] (Imaging) [address] [place], [address], 12/12/2017 07:01:09 12/12/19 18 09/07/2017 MRI, foot, w/o contr ast No observ ation record ed. [facility] Add On Lab Orders [address] [place], [address], 12/13/2017 08:10:04 12/12/19 18 07/25/2017 CT, abdom en + pelvi s, w/ contr ast No observ ation record ed. [facility] (Imaging) [address] [place], [address], 12/12/2017 06:59:59 04/25/19 19 04/25/2018 LDCT, chest , for lung cance r scree katie No observ ation record ed. [address] (Imaging) [address] [place], [address], 06/13/2018 19:14:43 07/27/19 19 07/26/2018 XR, chest , 2 view No observ ation record ed. [place] [id number] Not Available 2018 02:16:14 Result Notes None recorded. Problems Name Problem SNOMED Code Status Onset Date Resolution Date Notes Provider Name and Address Organization Details Recorded Time Right lower quadrant pain 433536112 Active Laura Webb MD Attn: George reddy,[address] [place], [address], [place] [facility] 5 16:46:30 Paresthes ia of hand 070184764 Active Laura Webb MD Attn: George reddy,[address] [facility], [place], [address], [place] [facility] 6 15:16:51 Blood in urine 48586659 Active Madeleine Perry MD Attn: Goerge reddy,[address] [facility], [place], [address], [place] [facility] 5 10:59:12 Alteratio n in bowel eliminati on 866311480 Active Laura Webb MD Attn: George reddy,[address] [place], [address], [place] [facility] 5 16:08:59 Inguinal pain 275411574 Active Laura Webb MD Attn: George erddy,[address] [place], [address], [place] [facility] 5 16:46:30 Low back pain 092930168 Active Laura Webb MD Attn: George reddy,[address] [place], [address], [place] [facility] 6 15:16:51 Osteopeni a 195918123 Completed 12/27/2016 Laura Webb MD Attn: George reddy,[address] [place], [address], [place] [facility] 7 12:41:41 Carotid atheroscl erosis 957249150 Active Laura Webb MD Attn: George reddy,[address] [place], [address], [place] [facility] 5 16:46:30 Complicat ion of surgical procedure 02783892 Completed 12/27/2016 Laura Webb MD Attn: Hansastephanie reddy,[address] [place], [address], [place] [facility] 7 12:41:52 Leakage from breast implant 286212793 Active Laura Webb MD Attn: Hansastephanie reddy,[address] [facility], [place], [address], [place] [facility] 5 19:00:03 Breast lump 98538426 Active Savanah Villafana ORDER CHECKER null, [place] - [facility] 5 11:50:19 Bronchiti s 49119741 Active Laura Webb MD Attn: Accountstephanie reddy,[address] [facility], [place], [address], [place] [facility] 6 13:43:48 Primary osteoporo sis 425600682 Active Laura Webb MD Attn: Hansastephanie reddy,[address] [facility], [place], [address], [place] [facility] 5 15:25:54 Chronic osteoarth ritis 55723119 Active Laura Webb MD Attn: George barry,[address] [facility], [place], [address], [place] [facility] 6 15:16:51 Pain radiating to left leg 581399199 Active Laura Webb MD Attn: Hansastephanie reddy,[address] [facility], [place], [address], [place] [facility] 6 15:16:51 Pain radiating to right leg 181918888 Active Laura Webb MD Attn: George barry,[address] [facility], [place], [address], [place] [facility] 6 15:16:51 Raynaud's phenomeno n 441455577 Active Laura Webb MD Attn: Hansastephanie reddy,[address] [place], [address], [place] [facility] 6 15:06:29 Unilatera l headache Active Laura Webb MD Attn: George reddy,[address] [facility], [place], [address], [place] [facility] 6 15:06:29 Gastroeso phageal reflux disease 749585781 Active Laura Webb MD Attn: George reddy,[address] [place], [address], [place] [facility] 6 15:16:51 Muscle pain 80939747 Active 2016 Laura Webb MD Attn: George barry,[address] [place], [address], [place] [facility] 7 13:26:54 Pain of multiple joints 96087045 Active 2016 Laura Webb MD Attn: George barry,[address] [place], [address], [place] [facility] 7 13:27:38 Fatigue 36057732 Active 2016 Laura Webb MD Attn: George reddy,[address] [place], [address], [place] [facility] 7 13:27:59 Lesion of neck 823580945 Active 2016 Laura Webb MD Attn: George barry,[address] [place], [address], [place] [facility] 7 13:30:56 Screening for malignant neoplasm of breast Active 2016 Laura Webb MD Attn: George reddy,[address] [place], [address], [place] [facility] 7 12:44:00 Active immunizat ion Active 2016 Laura Webb MD Attn: George reddy,[address] [place], [address], [place] [facility] 7 12:45:56 Pain in left arm 187411297 Active 2016 Laura Webb MD Attn: George reddy,[address] [place], [address], [place] [facility] 7 12:34:53 Chronic obstructi ve pulmonary disease 33278082 Active 2016 Laura Webb MD Attn: George reddy,[address] [place], [address], [facility] 7 12:38:52 Former heavy tobacco smoker 023042386135 100 Active 2016 Laura Webb MD Attn: George reddy,[address] [place], [address], [facility] 7 12:39:39 Pain in right foot 546550974949 107 Active 2017 Laura Webb MD Attn: George reddy,[address] [place], [address], [facility] 8 18:21:19 Diverticu lar disease 493441010 Active 2018 Laura Webb MD Attn: George reddy,[address] [place], [address], [facility] 9 13:06:36 History of polyp of colon 998150034 Active 2018 Laura Webb MD Attn: George reddy,[address] [place], [address], [facility] 9 13:07:05 Hernia of abdominal wall Active 2018 Laura Webb MD Attn: George reddy,[address] [place], [address], [facility] 9 13:18:27 Parasitic disease 35641419 Active 2019 Laura Webb MD Attn: George reddy,[address] [place], [address], [facility] 0 12:17:26 Problem Notes None recorded. Procedures Surgical History Date Name Laterality Status Provider Name and Address Organization Details Recorded Time Hysterectomy completed Kee Woods [place] [facility] 04/29/2014 15:25:30 Mastectomy completed Laura Webb MD Attn: Accounting,[address] [facility] [place], [address], [facility] 04/29/2014 15:46:05 Hernia Repair completed Kee Woods MA [facility] 04/29/2014 15:25:30 Other completed Kee Woods MA [facility] 04/29/2014 15:25:30 Imaging Results None recorded. Procedure Notes None recorded. Medical Equipment None Reported. Allergies Allergen ID Allergen Name Allergen Category Reaction Reaction Severity Criticality Documentation Date Start Date Code Code System Note Provider Name and Address Organization Details Recorded Time 22762 codeine medicatio n nausea Not available Not available 04/29/2014 6980 RxNorm Kee coppola [place] null, [place] - [facility] 5 15:25:30 Medications Name Sig Start Date Stop Date [...] blood by Pulse oximetry Heart rate Systolic And Diastolic Provider Name and Address Organization Details Last Updated DateTime 9 154.94 cm 23.2 kg/m2 31748.8 6 g 98.1 [degF] 97 % 97 % 83 /min 124/72 mm[Hg] Erna Ceja MA [facility] 9 12:27:50 Date Recorded Body height Body mass index (BMI) Body weight Body temperature Oxygen saturation Oxygen saturation in Arterial blood by Pulse oximetry Systolic And Diastolic Provider Name and Address Organization Details Last Updated DateTime 8 154.94 cm 24.6 kg/m2 75325.0 1 g 97.9 [degF] 98 % 98 % 134/80 mm[Hg] Erna Ceja MA [facility] 8 17:40:29 Date Recorded Body height Body mass index (BMI) Body weight Heart rate Body temperature Oxygen saturation Oxygen saturation in Arterial blood by Pulse oximetry Systolic And Diastolic Provider Name and Address Organization Details Last Updated DateTime 8 154.94 cm 24.6 kg/m2 03950.0 1 g 80 /min 97.6 [degF] 98 % 98 % 124/80 mm[Hg] Erna Ceja MA [facility] 8 13:00:10 Date Recorded Body height Body mass index (BMI) Body weight Heart rate Oxygen saturation Oxygen saturation in Arterial blood by Pulse oximetry Body temperature Systolic And Diastolic Provider Name and Address Organization Details Last Updated DateTime 7 154.94 cm 24.8 kg/m2 54621.6 g 76 /min 98 % 98 % 97.6 [degF] 104/64 mm[Hg] Erna Ceja MA [facility] 7 12:24:00 Social History Question Answer Notes LastModified by Tradoria Details LastModified Time Tobacco Smoking Status Former Smoker Kee Woods MA null, [facility] 04/29/2014 15:25:29 What Is Your Level Of Caffeine Consumption? Heavy Information not available 04/29/2014 What Was The Date Of Your Most Recent Tobacco Screening? 03/20/2018 Information n ot available 09/26/2018 Sex: Unknown Functional Status Question Answer Note LastModified by Tradoria Details LastModified Time What is your level of alcohol consumption? Occasional Information not available 04/29/2014 Mental Status None recorded. Family History Relationship [...] Not available 01/03 14:30:26 Paternal Aunt Malignant neoplasm of breast jfunkhouser Not available 01/03 14:30:26 Paternal Uncle Heart disease jfunkhouser Not available 01/03 14:30:26 Medical History Condition Response Anxiety Disorder Y High Cholesterol Y Acid Reflux (GERD) Y Cancer Y Kidney or Bladder Problems Y Depression Y GI Problems Y Allergies Y Osteoporosis Y Gynecological History Statement/Question Response Current Control Method Hysterectom y Obstetrics History GPAL:G 0 P 0 0 0 0 Immunizations Vaccine Type Date Status Note Provider Nam e and Address Organization Details Recorded Time Influenza, split virus, quadrivalent, preservative 6 completed Not Available [facility] 03/[facility]2019 02:32:32 pneumococcal polysaccharide PPV23 6 completed Not Available [facility] 03/22/2019 02:29:54 Influenza, split virus, quadrivalent, preservative 7 completed Not Available [facility] 03/22/2019 02:51:00 Past Encounters Encounter ID Performer Location Encounter Start Date Encounter Closed Date Diagnosis/Indication Diagnosis SNOMED-CT Code Diagnosis ICD10 Code Diagnosis IMO Codes Diagnosis Note [id number] Laura [facility] [address] [place] [phone] 04/29/2014 15:05:10 04/29/2014 16:13:01 Right lower quadrant pain 050793852 Paresthesia of hand 269374757 right Blood in urine 11738447 Personal h istory of primary malignant neoplasm of breast 168581589 Alteration in bowel elimination 061510413 History of polyp of colon 698428723 [id number] [facility] [address] [place] [address] 08/19/2014 15:42:46 08/19/2014 16:49:53 Right lower quadrant pain 424982185 Inguinal pain 297316309 Low back pain 331375610 Osteopenia 677009651 Carotid atherosclerosis 526678201 [id number] Laura Webb MD [facility] (Adult Med) [address] [place] [id number] 01/13/2015 14:10:36 01/13/2015 15:27:29 Bronchitis 33936896 J40 Primary osteoporosis 276 223836 M81.0 Chronic osteoarthritis 54031765 M19.90 Back,hip,w rists Low back pain 365667159 M54.5 [id number] MD Maryjane [facility] (Adult Med) [address] [place] [id number] 06/09/2015 13:59:06 06/09/2015 15:09:30 Low back pain 217149115 M54.5 Pain radia ting to left leg 957549169 M79.609 Pain radia ting to right leg 675085124 M79.609 Raynaud's phenomenon 266 918207 I73.00 Unilateral headache 1030 61589 R51 Since Jan 2015. Post injury from syncopal episode Gastroesop hageal reflux disease 112084167 K21.9 [id number] MD Maryjane [facility] (Adult Med) [address] [place] [id number] 09/01/2015 12:37:17 09/01/2015 17:55:10 Low back pain 795968350 M54.5 Gastroesop hageal reflux disease 178548474 K21.9 Bronchitis 66090222 J40 [id number] MD [facility] (Adult Med) [address] [place] [id number] 12/15/2015 14:08:52 12/16/2015 11:57:45 Chronic osteoarthritis 56065415 M19.90 Back,hip,w rists Gastroesop hageal reflux disease 797658633 K21.9 Low back pain 106027241 M54.5 Pain radia ting to right leg 465713523 M79.609 Pain radia ting to left leg 991763397 M79.609 Paresthesia of hand 3090 18621 R20.2 right Personal h istory of primary malignant neoplasm of breast 688771621 Z85.3 Administra tion of influenza vaccine 58540789 Z23 [id number] MD Maryjane [facility] (Adult Med) [address] [place] [id number] 11/29/2016 12:15:30 11/29/2016 13:37:47 Muscle pain 78657085 M79.1 Fatigue 33016575 R53.83 Pain of mu ltiple joints 22375358 M25.50 Lesion of neck 373690694 L98.9 [id number] MD Maryj[facility] (Adult Med) [address] [place] [id number] 12/27/2016 11:55:21 12/27/2016 12:59:57 Pain of multiple joints 91837357 M25.50 Inguinal pain 699380857 R10.2 Primary osteoporosis 276 497220 M81.0 Paresthesia of hand 3090 33183 R20.2 Screening for malignant neoplasm of breast 798083666 Z12.31 Active immunization 3387 9002 Z23 [id number] Laura Webb MD [facility] (Adult Med) [address] [place] [id number] 01/22/2017 11:10:51 01/22/2017 14:27:57 Pain in left arm 860372754 M79.602 Restart gabapentin plus ibuprofen Raynaud's phenomenon 266 882594 I73.00 Chronic ob structive pulmonary disease 13297908 J44.9 Former hea vy tobacco smoker 1599507678 85348 Z87.130 [id number] MD Maryj[facility] (Adult Med) [address] [place] [id number] 02/21/2017 12:04:48 02/21/2017 14:02:25 Pain in left arm 773924891 M79.602 F/U with ortho as scheduled [id number] MD Maryj[facility] (Adult Med) [address] [place] [id number] 07/18/2017 16:56:30 07/19/2017 09:33:50 Right lower quadrant pain 737328063 R10.31 Pain in right foot 36113 30490 86609 M79.004 [id number] MD [facility]jane [facility] (Adult Med) [address] [place] [id number] 09/19/2017 12:11:16 09/20/2017 11:06:41 Pain in right foot 1738999914 11919 M79.671 Pain of mu ltiple joints 11594639 M25.50 Raynaud's phenomenon 266 343760 I73.00 Primary osteoporosis 276 550055 M81.0 [id number] MD Maryjane [facility] (Adult Med) [address] [place] [id number] 03/20/2018 12:04:10 03/21/2018 09:22:32 Diverticular disease 247949404 K57.90 History of polyp of colon 305841761 Z86.010 Pain radia ting to left leg 924677172 M79.609 Gastroesop hageal reflux disease 414205077 K21.9 Screening for malignant neoplasm of breast 252342662 Z12.31 Former hea vy tobacco smoker 7613961838 90872 Z87.891 Hernia of abdominal wall 905909093 K43.6 [id number] Laura Webb MD [facility] (Adult Med) [address] [place] [address] 09/22/2019 10:46:29 09/23/2019 10:35:05 Parasitic disease 20249501 B89 Health Concerns Section Related Observation LastModified by Organization Detai ls LastModified Time None Recorded Concern Status LastModified by Organization Details LastModified Time None Recorded Advance Directives Directive None Recorded Payers Insurance Date Sequence Insurance Name Policy Number Policy Bermeo Covered Member ID Bermeo Member ID Guarantor Name 11/25/2016 1 [facility] - OPEN ACCESS (POS) [id number] Tatyana Beltran [id number] Tatyana Beltran 11/25/2016 1 [employer] (MEDICARE REPLACEMENT PPO) Tatyana Beltran [id number] Tatyana Beltran 11/25/2016 1 [facility] PRIOR TO 09/02/2020 (MEDICAID REPLACEMENT - HMO) Tatyana Beltran [id number] Tatyana Beltran 10/16/2019 1 [place] [facility] Tatyana Beltran [id number] Tatyana Beltran 11/11/2019 1 [facility] PRIOR TO 09/02/2020 (MEDICAID REPLACEMENT - HMO) Tatyana Beltran [id number] Tatyana Beltran Notes Date Note Type Note Provider Name and Address Organization Details Recorded Time 02/21/2017 text/html No change in arm pain. Scheduled to see Ortho in one month Laura Webb MD Attn: Accounting,[address] , [place], [address], [facility] 02/21/2017 12:35:19 07/18/2017 text/html Developed pain in right foot six weeks ago. No fx on xrays. Still painful. Pain in right groin persists Laura Webb MD Attn: Accounting,[address] , [place], [address], [facility] 07/18/2017 18:37:52 09/19/2017 text/html Surgery has been recommended by electrician front. Pt wants referral to auto parts delivery driver/ort hopedist for second opinion. Laura Webb MD Attn: Accounting,[address] [facility], [place], [address], [facility] - [facility] 09/19/2017 13:21:32 03/20/2018 text/html no new complaints. Seeing ortho for wrists, hands and feet. has upper abd hernia which is painful at times. Laura Wbeb MD Attn: Accounting,[address] [facility], [place], [address], [facility] - [facility] 03/20/2018 13:21:39 09/22/2019 text/html Telephone visit due to Covid-19 precautions. Pt unavailable for first call. Unable to leave voice message. Spoke wit pt. She was out if state developed diarrhea, N/V. Saw brown worms in her stool yesterday. Laura Webb MD Attn: Accounting,[address] [facility], [place], [address], [facility] 09/22/2019 12:18:55 OBGyn Episode No OBEpisode recorded.
--- OUTSIDE RECORDS SUMMARY | 2025-01-12 15:11 | XMS_ITS | Clinical Summary ---
Author Organization [facility] Address [address] [place] [address] Phone Care Team Providers Care Processing Technician Name Role Phone Unavailable Primary Care Provider [...] 10:09 AM CDT Height 157.5 cm (5' 2) 12/16/2014 10:09 AM CDT Body Mass Index [...] 2008 OSTEOPOROSIS SCREENING 06/27/2023 INFLUENZA VACCINE (#1) 2024 RSV VACCINE (60+ or ) (1 - 1-dose 75+ series) 2033
--- OUTSIDE RECORDS SUMMARY | 2025-01-12 15:11 | XMS_ITS | Clinical Summary ---
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 Name Role Phone Laura Webb MD [...] Comments Blood Pressure 114/80 03/22/2018 11:36 AM ARCHITECT IN TRAINING Pulse 72 03/22/2018 11:36 AM [employer]CHIT[employer] Temperature 36 C (96.8 F) 01/16/2018 11:21 AM ARCHIT[employer] IN TRAINING Respiratory Rate 18 01/16/2018 11:2 1 AM ARCHIT[employer] IN TRAINING Oxygen Saturation 98% 03/22/2018 11: 36 AM ARCHIT[employer] IN TRAINING Inhaled Oxygen Concentration - - Weight 54.8 kg (120 lb 12.8 oz) 019 11:36 AM ARCHIT[employer] IN TRAINING Height 154.9 cm (5' 1) 03/22/2018 11:3 6 AM ARCHIT[employer] IN TRAINING Body Mass Index 22.82 03/22/2018 11:36 AM ARCHITECT IN TRAINING Plan of Treatment Health Maintenance Due Date Last Done Comments Hepatitis C Virus (HCV) Screening 1960 TdaP Immunization 1960 Cologuard 06/27/2003 Immunochemical Fecal Occult Blood 06/27/2003 Zoster Immunization (1 of 2) 2008 Pneumococcal Immunization (5 0+ years) (2 of 2 - PCV) 12/15/2016 12/16/2015 Colonoscopy 01/16/2021 01/16/2018 Colorectal Cancer Screening 01/16/2021 Influenza Immunization (#1) 11/03/202412/04, 12/15/2015 SARS-COV-2 Immunization (3 - 2024- season) 2024 08/13/2020, 07/16/2020 Respiratory Syncytial Virus (RSV) Immunization (Adult) (1 - 1-dose 75+ series) 2033 Pneumococcal Immunization Combined Discontinued 12/16/2015 Hepatitis B Immunization Aged Out No longer eligible based on patient's age to complete this topic Human Papillomavirus (HPV) Immunization Aged Out No longer eligible based on patient's age to complete this topic Meningococcal Immunization (ACWY) Aged Out No longer eligible based on patient's age to complete this topic Rotavirus Immunization Aged Out No lo nger eligible based on patient's age to complete this topic Insurance [employer]ID [employer] Care Teams Load Test Mechanic Relationship Specialty Start Date End Date Laura Webb MD [address] [place] [address] PCP - General Internal Medicine 08/23/17
[2025-01-12 16:18] LABS: Hematocrit 37.7 % (37.0-47.0); Hemoglobin 12.1 g/dL (12.0-15.0); Immature Granulocyte Percent A 0.2 % (0-0.5); Lymphocytes Absolute Auto 1.09 K/mm3 (0.9-3.2); Mean Corpuscular HGB Conc 32.1 g/dl (32-36); Mean Corpuscular Hemoglobin 30.9 pg (26-34); Mean Corpuscular Volume 96.2 fl (80-100); Nucleated Red Blood Cells Absolute Auto 0.000 K/mm3 (0.0-0.012); Nucleated Red Blood Cells Perc 0.0 % (0.0-0.2); Platelet Count Result 204 k/mm3 (150-375); Red Blood Count 3.92 M/mm3 (4.2-5.4); White Blood Count 4.1 K/mm3 (4.5-10.0)
[2025-01-12 16:22] LABS: Add Urine Microscopic? NO; Appearance Urine Clear (Clear); Glucose Urine UA Negative (Negative); Leukocyte Esterase Ur Negative LEU/UL (Negative); Nitrate Urine Negative (Negative); Specific Grav Ur 1.020 (1.001-1.035)
[2025-01-12 16:26] LABS: Hemoglobin A1C 5.0 % (<5.7)
[2025-01-12 16:28] LABS: Alanine Aminotransferase 29 U/L (6-35); Albumin Level 4.1 g/dL (3.5-5.1); Alkaline Phosphatase 117 U/L (38-126); Anion Gap 6 mmol/L (4-12); Aspartate Amino Transferase 33 U/L (14-36); Bilirubin,Total 0.7 mg/dL (0.2-1.3); Blood Urea Nitrogen 18 mg/dL (7-17); Calcium 8.9 mg/dL (8.4-10.2); Carbon Dioxide 28 mmol/L (22-30); Chloride 101 mmol/L (98-107); Cholesterol 224 mg/dL (0-200); Estimated Glomerular Filt Rate > 60; Glucose 87 mg/dL (65-110); HDL Direct 87 mg/dL; Potassium 4.3 mmol/L (3.4-5.0); Sodium 135 mmol/L (137-145); Total Protein 6.9 g/dL (6.3-8.2); Triglycerides 47 mg/dL (<150)
[2025-01-12 17:01] LABS: Thyroid Stimulating Hormone 2.070 uIU/mL (0.465-4.680)
== END 2025-01-12 15:07 | disposition home or self-care (01) ==
PROVIDERS: PCP Nurse Practitioner; Visit Provider Nurse Practitioner
DX: E78.5 Hyperlipidemia, unspecified (principal); R73.03 Prediabetes; E55.9 Vitamin D deficiency, unspecified; R73.9 Hyperglycemia, unspecified; M81.0 Age-related osteoporosis without current pathological fracture; F17.200 Nicotine dependence, unspecified, uncomplicated; R53.81 Other malaise
CPT/HCPCS: 36415; 80053; 80061; 81003; 83036; 84443; 85025